=== PATIENT | female | born 1930 | race Caucasian/White ===

== ENCOUNTER → 2018-03-16 | Outpatient (CLI) | payer MEDICARE, OTHER | END | disposition home or self-care (01) | LOC: RAD 13:43 | DX: J20.9 Acute bronchitis, unspecified (principal) | CPT/HCPCS: 71046 ==

== ENCOUNTER 2018-03-19 11:04 | Inpatient (IN) | payer MEDICARE, OTHER ==
[2018-03-19 13:13] LABS: ADD UMIC YES; UR ASCORBIC ACID NEGATIVE (NEGATIVE); UR BACTERIA FEW /HPF (NONE SEEN); UR BILIRUBIN (Dip) NEGATIVE (NEGATIVE); UR BLOOD (Dip) 1+ mg/dL (NEGATIVE); UR CLARITY CLEAR (CLEAR); UR COLOR YELLOW (YELLOW); UR GLUCOSE (Dip) NEGATIVE (NEGATIVE); UR KETONES (Dip) NEGATIVE (NEGATIVE); UR LEUKOCYTE ESTERASE (Dip) 1+ Leu/ul (NEGATIVE); UR NITRITE (Dip) NEGATIVE (NEGATIVE); UR RBC 1 /HPF (0-5); UR SQUAMOUS EPITHELIAL CELL FEW /HPF (FEW); UR TOTAL PROTEIN (Dip) 2+ mg/dl (NEGATIVE); UR UROBILINOGEN (Dip) NEGATIVE (NEGATIVE); UR WBC 3 /HPF (0-5)
[2018-03-19 13:21] LABS: ADD MAN DIFF? NO
[2018-03-19 13:26] LABS: BASOPHILS % 0.1 % (0.0-2.0); HEMATOCRIT 45.4 % (37.0-47.0); HEMOGLOBIN 14.9 g/dl (12.0-16.0); LYMPHOCYTES # 1.6 10^3/ul (0.8-2.9); LYMPHOCYTES % 11.7 % (15.0-51.0); MEAN CORPUSCULAR HEMOGLOBIN 27.9 pg (29.0-33.0); MEAN CORPUSCULAR HGB CONC 32.8 g/dl (32.0-37.0); MEAN PLATELET VOLUME 11.2 fl (7.4-10.4); MONOCYTE # 0.5 10^3/ul (0.3-0.9); NEUTROPHIL # 11.2 10^3/ul (1.6-7.5); NEUTROPHILS % 83.8 % (39.0-77.0); PLATELET COUNT 326 10^3/UL (140-415); RED BLOOD COUNT 5.34 10^6/ul (4.20-5.40); RED CELL DISTRIBUTION WIDTH 13.2 % (11.5-14.5)
[2018-03-19 13:26] LABS: WHITE BLOOD COUNT 13.4 10^3/ul (4.8-10.8)
[2018-03-19] MEDS: CEFTRIAXONE 1 GM/50 ML (PMX) 50 ML IVPB (14:13)
[2018-03-19] MEDS: SOD CHLORIDE 0.9% 1,000 ML IV (14:14)
[2018-03-19 14:15] LABS: ALANINE AMINOTRANSFERASE 29 IU/L (13-69); ALBUMIN 3.9 g/dl (3.3-4.9); ALKALINE PHOSPHATASE 69 IU/L (42-121); ANION GAP 14 (8-16); ASPARTATE AMINO TRANSFERASE 27 IU/L (15-46); BILIRUBIN,INDIRECT 0.5 mg/dl (0-1.1); BILIRUBIN,TOTAL 0.5 mg/dl (0.2-1.3); BLOOD UREA NITROGEN 28 mg/dl (7-20); CALCIUM 9.7 mg/dl (8.4-10.2); CARBON DIOXIDE 31 mmol/L (21-31); CHLORIDE 102 mmol/L (97-110); GLUCOSE 145 mg/dl (70-220); POTASSIUM 4.1 mmol/L (3.5-5.1); SODIUM 143 mmol/L (135-144); TOTAL PROTEIN 7.8 g/dl (6.1-8.1)
[2018-03-19 14:23] LABS: B-TYPE NATRIURETIC PEPTIDE 12200 PG/ML (0-450)
[2018-03-19] MEDS: AZITHROMYCIN 500MG/NS (PMX) 250 ML IV (14:47)
[2018-03-19] MEDS ORDERED: SOD CHLORIDE 0.9% 1,000 ML IV (14:49)
[2018-03-19] MEDS ORDERED: ONDANSETRON 4 MG INJ IV (15:00)
[2018-03-19] MEDS ORDERED: ACETAMINOPHEN 325 MG TAB PO (15:00)
[2018-03-19] MEDS ORDERED: ACETAMINOPHEN 650 MG SUPP PR (16:30)
[2018-03-19] MEDS ORDERED: hydrALAzine 20 MG INJ IV (16:30)
[2018-03-19] MEDS ORDERED: morphine 2 MG INJ IV (16:30)
[2018-03-19] MEDS ORDERED: NACL 0.9% 3 ML SYG IV (16:30)
[2018-03-19] MEDS ORDERED: HYDROCODONE/APAP (5/325) TAB PO ×2 (16:30)
[2018-03-19] MEDS ORDERED: BISACODYL 10 MG SUPP PR (16:30)
[2018-03-19] MEDS ORDERED: ALBUTEROL HFA 8 GM INHALER INH (17:00)
[2018-03-19] MEDS: FUROSEMIDE 40 MG INJ IV (17:57)
[2018-03-19 19:57] LABS: LACTIC ACID 2.6 mmol/L (0.5-2.0)
[2018-03-19] MEDS: ONDANSETRON 4 MG INJ IV (20:25)
[2018-03-19] MEDS: SOD CHLORIDE 0.9% 250 ML IV (20:27)
[2018-03-19] MEDS: CALCIUM CARBONATE 1.25 GM TAB PO (21:00)
[2018-03-19] MEDS: GUAIFENESIN LA 600 MG TABSR PO (21:00)
[2018-03-19] MEDS: ROPINIROLE 0.25 MG TAB PO (21:00)
[2018-03-19] MEDS: ATORVASTATIN 40 MG TAB PO (21:00)
[2018-03-20 01:30] LABS: LACTIC ACID 1.9 mmol/L (0.5-2.0)
[2018-03-20] MEDS: ONDANSETRON INJ 8 MG in DEXTROSE 5% 50 ML IV (01:38)
[2018-03-20 01:42] LABS: TROPONIN-I 0.055 ng/ml (0.00-0.12)
[2018-03-20] MEDS: OSELTAMIVIR 75 MG CAP PO ×3 (02:26→20:29)
[2018-03-20] MEDS: PANTOPRAZOLE 40 MG INJ IV (06:09)
[2018-03-20 06:12] LABS: ADD MAN DIFF? NO
[2018-03-20 06:13] LABS: BASOPHILS % 0.1 % (0.0-2.0); HEMATOCRIT 42.8 % (37.0-47.0); HEMOGLOBIN 14.4 g/dl (12.0-16.0); LYMPHOCYTES # 1.6 10^3/ul (0.8-2.9); LYMPHOCYTES % 13.4 % (15.0-51.0); MEAN CORPUSCULAR HEMOGLOBIN 28.4 pg (29.0-33.0); MEAN CORPUSCULAR HGB CONC 33.6 g/dl (32.0-37.0); MEAN CORPUSCULAR VOLUME 84.4 fl (82.0-101.0); MEAN PLATELET VOLUME 10.8 fl (7.4-10.4); MONOCYTE # 1.3 10^3/ul (0.3-0.9); MONOCYTES % 10.7 % (0.0-11.0); NEUTROPHILS % 75.5 % (39.0-77.0); PLATELET COUNT 335 10^3/UL (140-415); RED BLOOD COUNT 5.07 10^6/ul (4.20-5.40); RED CELL DISTRIBUTION WIDTH 13.1 % (11.5-14.5)
[2018-03-20 06:13] LABS: WHITE BLOOD COUNT 11.9 10^3/ul (4.8-10.8)
[2018-03-20 06:32] LABS: HEMOGLOBIN A1C 5.9 % (0-5.9)
[2018-03-20 06:51] LABS: ALANINE AMINOTRANSFERASE 30 IU/L (13-69); ALBUMIN/GLOBULIN RATIO 1.11; ALKALINE PHOSPHATASE 65 IU/L (42-121); ANION GAP 12 (8-16); ASPARTATE AMINO TRANSFERASE 25 IU/L (15-46); BILIRUBIN,INDIRECT 0.7 mg/dl (0-1.1); BILIRUBIN,TOTAL 0.7 mg/dl (0.2-1.3); BLOOD UREA NITROGEN 27 mg/dl (7-20); CALCIUM 9.5 mg/dl (8.4-10.2); CARBON DIOXIDE 39 mmol/L (21-31); CHLORIDE 95 mmol/L (97-110); CHOLESTEROL 220 mg/dl (100-200); CREATININE 0.85 mg/dl (0.44-1.00); GLUCOSE 161 mg/dl (70-220); HDL CHOLESTEROL 72 mg/dl (33-92); LDL CHOLESTEROL,CALCULATED 124 mg/dl; MAGNESIUM 1.7 mg/dl (1.7-2.5); POTASSIUM 3.9 mmol/L (3.5-5.1); SODIUM 142 mmol/L (135-144); TOTAL PROTEIN 7.6 g/dl (6.1-8.1); TRIGLYCERIDES 119 mg/dl (0-149)
[2018-03-20 06:56] LABS: FREE THYROXINE INDEX (Calc) 3.16 ug/ml (0.65-3.89); T3 UPTAKE 36.3 % (23.5-40.5); T4 (THYROXINE) 8.7 ug/dl (5.5-11.0)
[2018-03-20 06:58] LABS: LACTIC ACID 1.4 mmol/L (0.5-2.0)
[2018-03-20] MEDS: DONEPEZIL 10 MG TAB PO (08:45)
[2018-03-20] MEDS: FUROSEMIDE 40 MG INJ IV (08:45)
[2018-03-20] MEDS: NIFEdipine (XL) 60 MG TAB PO (08:46)
[2018-03-20] MEDS ORDERED: AZITHROMYCIN 500MG/NS (PMX) 250 ML IVPB (09:00)
[2018-03-20] MEDS: ASPIRIN 81 MG TAB PO (11:33)
[2018-03-20] MEDS: GUAIFENESIN LA 600 MG TABSR PO ×2 (11:33→20:28)
[2018-03-20] MEDS: VALSARTAN 160 MG TAB PO (11:34)
[2018-03-20] MEDS: HYDROCHLOROTHIAZIDE 25 MG TAB PO (11:34)
[2018-03-20 12:08] LABS: LACTIC ACID 2.4 mmol/L (0.5-2.0)
[2018-03-20] MEDS: SOLIFENACIN 5 MG TAB PO (13:47)
[2018-03-20] MEDS: LEVOTHYROXINE 75 MCG TAB PO (13:47)
[2018-03-20] MEDS: CALCIUM CARBONATE 1.25 GM TAB PO ×2 (13:47→20:29)
[2018-03-20] MEDS: LACTATED RINGER'S 1,000 ML IV (13:48)
[2018-03-20] MEDS: CEFTRIAXONE 2 GM/50 ML (PMX) 50 ML IVPB (13:48)
[2018-03-20 19:52] LABS: LACTIC ACID 2.6 mmol/L (0.5-2.0)
[2018-03-20] MEDS: SOD CHLORIDE 0.9% 500 ML IV (20:25)
[2018-03-20] MEDS: ATORVASTATIN 40 MG TAB PO (20:28)
[2018-03-20] MEDS: ROPINIROLE 0.25 MG TAB PO (20:28)
[2018-03-21 00:26] LABS: LACTIC ACID 1.4 mmol/L (0.5-2.0)
[2018-03-21] MEDS: LACTATED RINGER'S 1,000 ML IV ×3 (02:50→21:28)
[2018-03-21 05:39] LABS: ADD MAN DIFF? NO
[2018-03-21 05:43] LABS: BASOPHILS % 0.1 % (0.0-2.0); EOSINOPHILS # 0.1 10^3/ul (0.0-0.5); EOSINOPHILS % 0.9 % (0.0-7.0); HEMATOCRIT 36.8 % (37.0-47.0); HEMOGLOBIN 12.2 g/dl (12.0-16.0); LYMPHOCYTES # 2.9 10^3/ul (0.8-2.9); LYMPHOCYTES % 28.6 % (15.0-51.0); MEAN CORPUSCULAR HGB CONC 33.2 g/dl (32.0-37.0); MEAN CORPUSCULAR VOLUME 84.4 fl (82.0-101.0); MEAN PLATELET VOLUME 10.8 fl (7.4-10.4); MONOCYTES % 9.9 % (0.0-11.0); NEUTROPHILS % 59.9 % (39.0-77.0); PLATELET COUNT 294 10^3/UL (140-415); RED BLOOD COUNT 4.36 10^6/ul (4.20-5.40); RED CELL DISTRIBUTION WIDTH 13.2 % (11.5-14.5)
[2018-03-21 05:43] LABS: WHITE BLOOD COUNT 10.1 10^3/ul (4.8-10.8)
[2018-03-21 06:01] LABS: ANION GAP 14 (8-16); BLOOD UREA NITROGEN 45 mg/dl (7-20); CALCIUM 8.1 mg/dl (8.4-10.2); CARBON DIOXIDE 34 mmol/L (21-31); CHLORIDE 92 mmol/L (97-110); CREATININE 1.45 mg/dl (0.44-1.00); GLUCOSE 106 mg/dl (70-220); POTASSIUM 3.1 mmol/L (3.5-5.1); SODIUM 137 mmol/L (135-144)
[2018-03-21] MEDS: PANTOPRAZOLE 40 MG INJ IV (06:38)
[2018-03-21] MEDS: LEVOTHYROXINE 75 MCG TAB PO (06:39)
[2018-03-21] MEDS: VALSARTAN 160 MG TAB PO (09:00)
[2018-03-21] MEDS: NIFEdipine (XL) 60 MG TAB PO (09:00)
[2018-03-21] MEDS: SOLIFENACIN 5 MG TAB PO (09:33)
[2018-03-21] MEDS: OSELTAMIVIR 75 MG CAP PO ×2 (09:34→21:27)
[2018-03-21] MEDS: CALCIUM CARBONATE 1.25 GM TAB PO ×2 (09:34→21:28)
[2018-03-21] MEDS: DONEPEZIL 10 MG TAB PO (09:34)
[2018-03-21] MEDS: ASPIRIN 81 MG TAB PO (09:34)
[2018-03-21] MEDS: GUAIFENESIN LA 600 MG TABSR PO ×2 (09:34→21:28)
[2018-03-21] MEDS: FUROSEMIDE 40 MG INJ IV (09:42)
[2018-03-21] MEDS: CEFTRIAXONE 2 GM/50 ML (PMX) 50 ML IVPB (14:00)
[2018-03-21] MEDS: POTASSIUM CHLORIDE (SR) 20 MEQ TAB PO (16:08)
[2018-03-21] MEDS: ATORVASTATIN 40 MG TAB PO (21:27)
[2018-03-21] MEDS: ROPINIROLE 0.25 MG TAB PO (21:28)
[2018-03-21 23:17] LABS: CREATININE,URINE RANDOM 42.69 mg/dl (20-320)
[2018-03-21 23:17] LABS: SODIUM,URINE RANDOM 60 mmol/L (30-90)
[2018-03-22] MEDS: DOCUSATE SODIUM 100 MG CAP PO (03:17)
[2018-03-22 06:14] LABS: ADD MAN DIFF? NO
[2018-03-22 06:23] LABS: BASOPHILS % 0.2 % (0.0-2.0); EOSINOPHILS # 0.2 10^3/ul (0.0-0.5); EOSINOPHILS % 1.7 % (0.0-7.0); HEMATOCRIT 38.2 % (37.0-47.0); HEMOGLOBIN 12.7 g/dl (12.0-16.0); LYMPHOCYTES # 2.5 10^3/ul (0.8-2.9); LYMPHOCYTES % 23.5 % (15.0-51.0); MEAN CORPUSCULAR HGB CONC 33.2 g/dl (32.0-37.0); MEAN CORPUSCULAR VOLUME 84.3 fl (82.0-101.0); MEAN PLATELET VOLUME 10.8 fl (7.4-10.4); MONOCYTE # 1.2 10^3/ul (0.3-0.9); MONOCYTES % 10.8 % (0.0-11.0); NEUTROPHIL # 6.7 10^3/ul (1.6-7.5); NEUTROPHILS % 62.9 % (39.0-77.0); PLATELET COUNT 289 10^3/UL (140-415); RED BLOOD COUNT 4.53 10^6/ul (4.20-5.40); RED CELL DISTRIBUTION WIDTH 13.4 % (11.5-14.5)
[2018-03-22 06:23] LABS: WHITE BLOOD COUNT 10.7 10^3/ul (4.8-10.8)
[2018-03-22] MEDS: PANTOPRAZOLE 40 MG INJ IV (06:35)
[2018-03-22] MEDS: LEVOTHYROXINE 75 MCG TAB PO (06:35)
[2018-03-22 06:47] LABS: ANION GAP 13 (8-16); BLOOD UREA NITROGEN 42 mg/dl (7-20); CALCIUM 8.8 mg/dl (8.4-10.2); CARBON DIOXIDE 32 mmol/L (21-31); CHLORIDE 96 mmol/L (97-110); GLUCOSE 104 mg/dl (70-220); POTASSIUM 3.8 mmol/L (3.5-5.1); SODIUM 137 mmol/L (135-144)
[2018-03-22] MEDS: SOLIFENACIN 5 MG TAB PO (09:59)
[2018-03-22] MEDS: ASPIRIN 81 MG TAB PO (10:00)
[2018-03-22] MEDS: NIFEdipine (XL) 60 MG TAB PO (10:00)
[2018-03-22] MEDS: GUAIFENESIN LA 600 MG TABSR PO ×2 (10:00→20:45)
[2018-03-22] MEDS ORDERED: LACTULOSE 30ML CUP PO (10:00)
[2018-03-22] MEDS ORDERED: PROMETHAZINE/CODEINE 5ML CUP PO (10:00)
[2018-03-22] MEDS: OSELTAMIVIR 75 MG CAP PO (10:00)
[2018-03-22] MEDS: DONEPEZIL 10 MG TAB PO (10:00)
[2018-03-22] MEDS: CALCIUM CARBONATE 1.25 GM TAB PO ×2 (10:01→20:45)
[2018-03-22] MEDS: LACTULOSE 30ML CUP PO (10:02)
[2018-03-22] MEDS: PROMETHAZINE/CODEINE 5ML CUP PO (10:06)
[2018-03-22] MEDS: MAGNESIUM HYDROXIDE 30ML CUP PO ×2 (12:16→17:45)
[2018-03-22] MEDS: CEFTRIAXONE 2 GM/50 ML (PMX) 50 ML IVPB (14:23)
[2018-03-22] MEDS: CLOTRIMAZOLE 1% 30 GM CR TOP ×2 (17:44→20:48)
[2018-03-22] MEDS: OSELTAMIVIR 30 MG CAP PO (20:45)
[2018-03-22] MEDS: ROPINIROLE 0.25 MG TAB PO (20:45)
[2018-03-22] MEDS: ATORVASTATIN 40 MG TAB PO (20:45)
[2018-03-23] MEDS: PANTOPRAZOLE 40 MG INJ IV (05:47)
[2018-03-23 06:19] LABS: ADD MAN DIFF? NO
[2018-03-23 06:32] LABS: WHITE BLOOD COUNT 10.7 10^3/ul (4.8-10.8)
[2018-03-23 06:32] LABS: BASOPHILS % 0.3 % (0.0-2.0); EOSINOPHILS # 0.3 10^3/ul (0.0-0.5); EOSINOPHILS % 3.2 % (0.0-7.0); HEMATOCRIT 37.3 % (37.0-47.0); HEMOGLOBIN 12.4 g/dl (12.0-16.0); LYMPHOCYTES # 2.6 10^3/ul (0.8-2.9); LYMPHOCYTES % 24.3 % (15.0-51.0); MEAN CORPUSCULAR HEMOGLOBIN 28.7 pg (29.0-33.0); MEAN CORPUSCULAR HGB CONC 33.2 g/dl (32.0-37.0); MEAN CORPUSCULAR VOLUME 86.3 fl (82.0-101.0); MEAN PLATELET VOLUME 10.5 fl (7.4-10.4); MONOCYTE # 1.1 10^3/ul (0.3-0.9); MONOCYTES % 10.3 % (0.0-11.0); NEUTROPHIL # 6.5 10^3/ul (1.6-7.5); NEUTROPHILS % 61.1 % (39.0-77.0); PLATELET COUNT 280 10^3/UL (140-415); RED BLOOD COUNT 4.32 10^6/ul (4.20-5.40); RED CELL DISTRIBUTION WIDTH 13.3 % (11.5-14.5)
[2018-03-23] MEDS: LEVOTHYROXINE 75 MCG TAB PO (06:33)
[2018-03-23] MEDS: ACETAMINOPHEN 325 MG TAB PO (06:33)
[2018-03-23 07:25] LABS: ANION GAP 11 (8-16); BLOOD UREA NITROGEN 40 mg/dl (7-20); CALCIUM 8.7 mg/dl (8.4-10.2); CARBON DIOXIDE 34 mmol/L (21-31); CHLORIDE 96 mmol/L (97-110); CREATININE 1.02 mg/dl (0.44-1.00); GLUCOSE 107 mg/dl (70-220); POTASSIUM 4.2 mmol/L (3.5-5.1); SODIUM 137 mmol/L (135-144)
[2018-03-23] MEDS: ASPIRIN 81 MG TAB PO (08:59)
[2018-03-23] MEDS: DONEPEZIL 10 MG TAB PO (08:59)
[2018-03-23] MEDS: CALCIUM CARBONATE 1.25 GM TAB PO ×2 (09:00→21:32)
[2018-03-23] MEDS: GUAIFENESIN LA 600 MG TABSR PO ×2 (09:00→21:32)
[2018-03-23] MEDS: SOLIFENACIN 5 MG TAB PO (09:00)
[2018-03-23] MEDS: OSELTAMIVIR 30 MG CAP PO ×2 (09:00→21:32)
[2018-03-23] MEDS: NIFEdipine (XL) 60 MG TAB PO (09:00)
[2018-03-23] MEDS: CLOTRIMAZOLE 1% 30 GM CR TOP ×3 (09:01→21:32)
[2018-03-23] MEDS: CEFTRIAXONE 2 GM/50 ML (PMX) 50 ML IVPB (13:40)
[2018-03-23] MEDS: ATORVASTATIN 40 MG TAB PO (21:32)
[2018-03-23] MEDS: ROPINIROLE 0.25 MG TAB PO (21:32)
[2018-03-24] MEDS: PANTOPRAZOLE 40 MG INJ IV (06:11)
[2018-03-24] MEDS: LEVOTHYROXINE 75 MCG TAB PO (06:11)
[2018-03-24 06:25] LABS: ADD MAN DIFF? NO
[2018-03-24 06:32] LABS: BASOPHILS % 0.3 % (0.0-2.0); EOSINOPHILS # 0.4 10^3/ul (0.0-0.5); EOSINOPHILS % 4.3 % (0.0-7.0); HEMATOCRIT 35.7 % (37.0-47.0); HEMOGLOBIN 11.6 g/dl (12.0-16.0); LYMPHOCYTES % 21.3 % (15.0-51.0); MEAN CORPUSCULAR HEMOGLOBIN 28.1 pg (29.0-33.0); MEAN CORPUSCULAR HGB CONC 32.5 g/dl (32.0-37.0); MEAN CORPUSCULAR VOLUME 86.4 fl (82.0-101.0); MONOCYTE # 0.9 10^3/ul (0.3-0.9); MONOCYTES % 9.2 % (0.0-11.0); NEUTROPHILS % 64.1 % (39.0-77.0); PLATELET COUNT 268 10^3/UL (140-415); RED BLOOD COUNT 4.13 10^6/ul (4.20-5.40); RED CELL DISTRIBUTION WIDTH 13.6 % (11.5-14.5)
[2018-03-24 06:32] LABS: WHITE BLOOD COUNT 9.3 10^3/ul (4.8-10.8)
[2018-03-24 07:05] LABS: ANION GAP 8 (8-16); BLOOD UREA NITROGEN 36 mg/dl (7-20); CARBON DIOXIDE 36 mmol/L (21-31); CHLORIDE 100 mmol/L (97-110); CREATININE 0.99 mg/dl (0.44-1.00); GLUCOSE 109 mg/dl (70-220); POTASSIUM 4.6 mmol/L (3.5-5.1); SODIUM 139 mmol/L (135-144)
[2018-03-24] MEDS: DONEPEZIL 10 MG TAB PO (09:12)
[2018-03-24] MEDS: ASPIRIN 81 MG TAB PO (09:12)
[2018-03-24] MEDS: OSELTAMIVIR 30 MG CAP PO ×2 (09:12→20:09)
[2018-03-24] MEDS: CALCIUM CARBONATE 1.25 GM TAB PO ×2 (09:12→20:09)
[2018-03-24] MEDS: GUAIFENESIN LA 600 MG TABSR PO ×2 (09:12→20:09)
[2018-03-24] MEDS: NIFEdipine (XL) 60 MG TAB PO (09:13)
[2018-03-24] MEDS: CLOTRIMAZOLE 1% 30 GM CR TOP ×3 (09:14→20:10)
[2018-03-24] MEDS: SOLIFENACIN 5 MG TAB PO (09:16)
[2018-03-24] MEDS: CEFTRIAXONE 2 GM/50 ML (PMX) 50 ML IVPB (13:03)
[2018-03-24] MEDS: ROPINIROLE 0.25 MG TAB PO (20:06)
[2018-03-24] MEDS: BENZONATATE 100 MG CAP PO (20:08)
[2018-03-24] MEDS: ATORVASTATIN 40 MG TAB PO (20:09)
[2018-03-25 06:10] LABS: ADD MAN DIFF? NO
[2018-03-25] MEDS: PANTOPRAZOLE 40 MG INJ IV (06:10)
[2018-03-25 06:13] LABS: WHITE BLOOD COUNT 8.3 10^3/ul (4.8-10.8)
[2018-03-25 06:13] LABS: BASOPHILS % 0.4 % (0.0-2.0); EOSINOPHILS # 0.4 10^3/ul (0.0-0.5); EOSINOPHILS % 4.3 % (0.0-7.0); HEMATOCRIT 36.1 % (37.0-47.0); HEMOGLOBIN 11.8 g/dl (12.0-16.0); LYMPHOCYTES # 1.5 10^3/ul (0.8-2.9); LYMPHOCYTES % 18.5 % (15.0-51.0); MEAN CORPUSCULAR HEMOGLOBIN 28.3 pg (29.0-33.0); MEAN CORPUSCULAR HGB CONC 32.7 g/dl (32.0-37.0); MEAN CORPUSCULAR VOLUME 86.6 fl (82.0-101.0); MEAN PLATELET VOLUME 10.4 fl (7.4-10.4); MONOCYTES % 12.5 % (0.0-11.0); NEUTROPHIL # 5.3 10^3/ul (1.6-7.5); NEUTROPHILS % 63.6 % (39.0-77.0); PLATELET COUNT 266 10^3/UL (140-415); RED BLOOD COUNT 4.17 10^6/ul (4.20-5.40); RED CELL DISTRIBUTION WIDTH 13.4 % (11.5-14.5)
[2018-03-25] MEDS: LEVOTHYROXINE 75 MCG TAB PO (06:30)
[2018-03-25] MEDS: DOCUSATE SODIUM 100 MG CAP PO ×2 (06:30→21:59)
[2018-03-25 06:41] LABS: ANION GAP 9 (8-16); BLOOD UREA NITROGEN 31 mg/dl (7-20); CALCIUM 8.8 mg/dl (8.4-10.2); CARBON DIOXIDE 31 mmol/L (21-31); CHLORIDE 104 mmol/L (97-110); CREATININE 0.87 mg/dl (0.44-1.00); GLUCOSE 109 mg/dl (70-220); POTASSIUM 4.3 mmol/L (3.5-5.1); SODIUM 140 mmol/L (135-144)
[2018-03-25] MEDS: CALCIUM CARBONATE 1.25 GM TAB PO ×2 (09:14→21:50)
[2018-03-25] MEDS: ASPIRIN 81 MG TAB PO (09:15)
[2018-03-25] MEDS: DONEPEZIL 10 MG TAB PO (09:15)
[2018-03-25] MEDS: NIFEdipine (XL) 60 MG TAB PO (09:15)
[2018-03-25] MEDS: OSELTAMIVIR 30 MG CAP PO ×2 (09:15→21:51)
[2018-03-25] MEDS: SOLIFENACIN 5 MG TAB PO (09:15)
[2018-03-25] MEDS: GUAIFENESIN LA 600 MG TABSR PO ×2 (09:16→21:52)
[2018-03-25] MEDS: CLOTRIMAZOLE 1% 30 GM CR TOP ×3 (09:17→21:53)
[2018-03-25] MEDS: BENZONATATE 100 MG CAP PO ×2 (13:10→21:49)
[2018-03-25] MEDS: CEFTRIAXONE 2 GM/50 ML (PMX) 50 ML IVPB (13:10)
[2018-03-25] MEDS: ROPINIROLE 0.25 MG TAB PO (21:49)
[2018-03-25] MEDS: ATORVASTATIN 40 MG TAB PO (21:51)
[2018-03-25] MEDS: MAGNESIUM HYDROXIDE 30ML CUP PO (21:59)
[2018-03-26] MEDS: BENZONATATE 100 MG CAP PO (06:09)
[2018-03-26] MEDS: PANTOPRAZOLE 40 MG INJ IV (06:09)
[2018-03-26] MEDS: LEVOTHYROXINE 75 MCG TAB PO (06:09)
[2018-03-26 06:44] LABS: ADD MAN DIFF? NO
[2018-03-26 06:55] LABS: WHITE BLOOD COUNT 8.2 10^3/ul (4.8-10.8)
[2018-03-26 06:55] LABS: BASOPHILS % 0.2 % (0.0-2.0); EOSINOPHILS # 0.3 10^3/ul (0.0-0.5); EOSINOPHILS % 4.2 % (0.0-7.0); HEMOGLOBIN 11.7 g/dl (12.0-16.0); LYMPHOCYTES # 1.4 10^3/ul (0.8-2.9); LYMPHOCYTES % 16.5 % (15.0-51.0); MEAN CORPUSCULAR HEMOGLOBIN 28.7 pg (29.0-33.0); MEAN CORPUSCULAR HGB CONC 33.4 g/dl (32.0-37.0); MONOCYTE # 0.9 10^3/ul (0.3-0.9); MONOCYTES % 10.6 % (0.0-11.0); NEUTROPHIL # 5.5 10^3/ul (1.6-7.5); NEUTROPHILS % 67.6 % (39.0-77.0); PLATELET COUNT 251 10^3/UL (140-415); RED BLOOD COUNT 4.07 10^6/ul (4.20-5.40); RED CELL DISTRIBUTION WIDTH 13.5 % (11.5-14.5)
[2018-03-26 07:06] LABS: POSITIVE DIFF @See below
[2018-03-26 07:13] LABS: ANION GAP 11 (8-16); BLOOD UREA NITROGEN 30 mg/dl (7-20); CALCIUM 8.4 mg/dl (8.4-10.2); CARBON DIOXIDE 32 mmol/L (21-31); CHLORIDE 102 mmol/L (97-110); CREATININE 0.92 mg/dl (0.44-1.00); GLUCOSE 110 mg/dl (70-220); MAGNESIUM 2.1 mg/dl (1.7-2.5); PHOSPHORUS 2.8 mg/dl (2.5-4.9); POTASSIUM 4.2 mmol/L (3.5-5.1); SODIUM 141 mmol/L (135-144)
[2018-03-26] MEDS: ASPIRIN 81 MG TAB PO (08:09)
[2018-03-26] MEDS: DONEPEZIL 10 MG TAB PO (08:09)
[2018-03-26] MEDS: CALCIUM CARBONATE 1.25 GM TAB PO (08:10)
[2018-03-26] MEDS: GUAIFENESIN LA 600 MG TABSR PO (08:10)
[2018-03-26] MEDS: OSELTAMIVIR 30 MG CAP PO (08:11)
[2018-03-26] MEDS: NIFEdipine (XL) 60 MG TAB PO (08:12)
[2018-03-26] MEDS: SOLIFENACIN 5 MG TAB PO (08:13)
[2018-03-26] MEDS: CLOTRIMAZOLE 1% 30 GM CR TOP ×2 (08:20→12:00)
[2018-03-26] MEDS: BISACODYL 10 MG SUPP PR (12:00)
[2018-03-26] MEDS: DOCUSATE SODIUM 100 MG CAP PO (12:00)
[2018-03-26] MEDS: CEFTRIAXONE 2 GM/50 ML (PMX) 50 ML IVPB (13:55)
== END 2018-03-26 19:30 | DRG 871 ==
LOC: E/R 11:04 → MS2 14:50
PROVIDERS: Hospitalist
DX: A41.89 Other specified sepsis (principal); I50.43 Acute on chronic combined systolic (congestive) and diastolic (congestive) heart failure; G93.41 Metabolic encephalopathy; N39.0 Urinary tract infection, site not specified; I13.0 Hypertensive heart and chronic kidney disease with heart failure and stage 1 through stage 4 chronic kidney disease, or unspecified chronic kidney disease; N17.9 Acute kidney failure, unspecified; J10.89 Influenza due to other identified influenza virus with other manifestations; E11.9 Type 2 diabetes mellitus without complications; F03.90 Unspecified dementia, unspecified severity, without behavioral disturbance, psychotic disturbance, mood disturbance, and anxiety; I25.10 Atherosclerotic heart disease of native coronary artery without angina pectoris; Z95.1 Presence of aortocoronary bypass graft; Z90.710 Acquired absence of both cervix and uterus; E03.9 Hypothyroidism, unspecified; E78.00 Pure hypercholesterolemia, unspecified; N18.9 Chronic kidney disease, unspecified
CPT/HCPCS: 36415; 70450; 70551; 71045; 74176; 80048; 80053; 80061; 81001; 81003; 83036; 83605; 83735; 83880; 84100; 84155; 84300; 84436; 84443; 84479; 84484; 85025; 87040; 87070; 87086; 87400; 89190; 93306; 96374; 96375; 97110; 97116; 97162; 97530; 99285-25

== ENCOUNTER 2019-05-23 05:29 | Inpatient (IN) | payer MEDICARE, OTHER ==
[2019-05-23] MEDS: FENTAnyl 50 MCG/ML VIAL IV (06:18)
[2019-05-23] MEDS ORDERED: ACETAMINOPHEN 325 MG TAB PO ×2 (06:30)
[2019-05-23] MEDS ORDERED: DOCUSATE SODIUM 100 MG CAP PO (06:30)
[2019-05-23] MEDS ORDERED: ONDANSETRON 4 MG INJ IV ×2 (06:30)
[2019-05-23] MEDS ORDERED: BISACODYL (EC) 5 MG TAB PO (06:30)
[2019-05-23] MEDS ORDERED: NACL 0.9% 3 ML SYG IV (06:30)
[2019-05-23 06:47] LABS: ADD MAN DIFF? NO
[2019-05-23 06:53] LABS: BASOPHILS % 0.4 % (0.0-2.0); EOSINOPHILS # 0.3 10^3/ul (0.0-0.5); HEMATOCRIT 33.4 % (37.0-47.0); HEMOGLOBIN 10.8 g/dl (12.0-16.0); LYMPHOCYTES # 2.3 10^3/ul (0.8-2.9); LYMPHOCYTES % 32.9 % (15.0-51.0); MEAN CORPUSCULAR HEMOGLOBIN 28.7 pg (29.0-33.0); MEAN CORPUSCULAR HGB CONC 32.3 g/dl (32.0-37.0); MEAN CORPUSCULAR VOLUME 88.8 fl (82.0-101.0); MEAN PLATELET VOLUME 11.5 fl (7.4-10.4); MONOCYTE # 0.7 10^3/ul (0.3-0.9); MONOCYTES % 9.9 % (0.0-11.0); NEUTROPHIL # 3.7 10^3/ul (1.6-7.5); NEUTROPHILS % 52.4 % (39.0-77.0); PLATELET COUNT 215 10^3/UL (140-415); RED BLOOD COUNT 3.76 10^6/ul (4.20-5.40); RED CELL DISTRIBUTION WIDTH 12.6 % (11.5-14.5)
[2019-05-23 06:53] LABS: WHITE BLOOD COUNT 7.1 10^3/ul (4.8-10.8)
[2019-05-23] MEDS ORDERED: ALBUTEROL 18 GM INHALER INH (07:00)
[2019-05-23] MEDS: SOD CHLORIDE 0.9% 1,000 ML IV (07:10)
[2019-05-23 07:13] LABS: INR 1.04; PROTIME 13.7 Sec (11.9-14.9); PT RATIO 1.1
[2019-05-23 07:16] LABS: ANION GAP 12 (5-13); BLOOD UREA NITROGEN 50 mg/dl (7-20); CALCIUM 9.4 mg/dl (8.4-10.2); CARBON DIOXIDE 20 mmol/L (21-31); CHLORIDE 109 mmol/L (97-110); CREATININE 1.31 mg/dl (0.44-1.00); GLUCOSE 110 mg/dl (70-220); SODIUM 141 mmol/L (135-144)
[2019-05-23 07:18] LABS: POTASSIUM 5.5 mmol/L (3.5-5.1)
[2019-05-23] MEDS: HYDROCODONE/APAP (5/325) TAB PO (07:21)
[2019-05-23] MEDS: morphine 2 MG INJ IV (07:21)
[2019-05-23 07:26] LABS: TROPONIN-I < 0.012 ng/ml (0.000-0.120)
[2019-05-23] MEDS: LEVOTHYROXINE 75 MCG TAB PO (08:25)
[2019-05-23 08:54] LABS: THYROID STIMULATING HORMONE 0.821 MIU/L (0.465-4.680)
[2019-05-23] MEDS: PANTOPRAZOLE (EC) 40 MG TAB PO (09:00)
[2019-05-23] MEDS: NIFEdipine (XL) 60 MG TAB PO (09:00)
[2019-05-23] MEDS: HYDROmorphONE 1 MG/ML SYG IV ×2 (11:01→18:16)
[2019-05-23 11:25] LABS: CREATINE KINASE 54 IU/L (23-200)
[2019-05-23 11:35] LABS: CK INDEX 1.7; CK-MB 0.91 ng/ml (0.0-2.4)
[2019-05-23 11:39] LABS: ANION GAP 8 (5-13); BLOOD UREA NITROGEN 46 mg/dl (7-20); CALCIUM 8.9 mg/dl (8.4-10.2); CARBON DIOXIDE 22 mmol/L (21-31); CHLORIDE 109 mmol/L (97-110); CREATININE 1.13 mg/dl (0.44-1.00); GLUCOSE 125 mg/dl (70-220); POTASSIUM 5.9 mmol/L (3.5-5.1); SODIUM 139 mmol/L (135-144)
[2019-05-23 11:42] LABS: TROPONIN-I < 0.012 ng/ml (0.000-0.120)
[2019-05-23] MEDS: DONEPEZIL 10 MG TAB PO (12:03)
[2019-05-23] MEDS: ASPIRIN 81 MG TAB PO (12:03)
[2019-05-23 18:43] LABS: CREATINE KINASE 53 IU/L (23-200)
[2019-05-23 18:53] LABS: CK INDEX 1.7; CK-MB 0.91 ng/ml (0.0-2.4); TROPONIN-I < 0.012 ng/ml (0.000-0.120)
[2019-05-23] MEDS: ATORVASTATIN 40 MG TAB PO (20:31)
[2019-05-23] MEDS ORDERED: DEXTROSE 50% 50 ML SYRINGE IV (22:00)
[2019-05-23] MEDS: ALBUTEROL 0.083% (NEB) 2.5 MG/3 ML AMP HHN (22:12)
[2019-05-23] MEDS: FUROSEMIDE 20 MG INJ IV (22:58)
[2019-05-23] MEDS: DEXTROSE 50% 50 ML SYRINGE IV (22:58)
[2019-05-23] MEDS: INSULIN REGULAR, HUMAN 100 UNIT/1 ML 3ML VIAL IVP (23:01)
[2019-05-24 01:45] LABS: ANION GAP 11 (5-13); BLOOD UREA NITROGEN 35 mg/dl (7-20); CARBON DIOXIDE 23 mmol/L (21-31); CHLORIDE 105 mmol/L (97-110); CREATININE 1.21 mg/dl (0.44-1.00); GLUCOSE 189 mg/dl (70-220); POTASSIUM 4.6 mmol/L (3.5-5.1); SODIUM 139 mmol/L (135-144)
[2019-05-24] MEDS ORDERED: SOD CHLORIDE 0.9% 1,000 ML IV (02:30)
[2019-05-24] MEDS: PANTOPRAZOLE (EC) 40 MG TAB PO (06:00)
[2019-05-24] MEDS: HYDROmorphONE 1 MG/ML SYG IV ×2 (06:02→18:26)
[2019-05-24 06:15] LABS: ADD MAN DIFF? NO
[2019-05-24 06:22] LABS: WHITE BLOOD COUNT 8.6 10^3/ul (4.8-10.8)
[2019-05-24 06:22] LABS: BASOPHILS % 0.2 % (0.0-2.0); EOSINOPHILS % 0.4 % (0.0-7.0); HEMATOCRIT 28.1 % (37.0-47.0); HEMOGLOBIN 9.1 g/dl (12.0-16.0); LYMPHOCYTES # 1.1 10^3/ul (0.8-2.9); LYMPHOCYTES % 12.5 % (15.0-51.0); MEAN CORPUSCULAR HEMOGLOBIN 28.6 pg (29.0-33.0); MEAN CORPUSCULAR HGB CONC 32.4 g/dl (32.0-37.0); MEAN CORPUSCULAR VOLUME 88.4 fl (82.0-101.0); MEAN PLATELET VOLUME 11.5 fl (7.4-10.4); MONOCYTE # 0.8 10^3/ul (0.3-0.9); MONOCYTES % 9.2 % (0.0-11.0); NEUTROPHIL # 6.6 10^3/ul (1.6-7.5); NEUTROPHILS % 77.2 % (39.0-77.0); PLATELET COUNT 186 10^3/UL (140-415); RED BLOOD COUNT 3.18 10^6/ul (4.20-5.40); RED CELL DISTRIBUTION WIDTH 12.8 % (11.5-14.5)
[2019-05-24] MEDS: LEVOTHYROXINE 75 MCG TAB PO (06:29)
[2019-05-24] MEDS ORDERED: SOD CHLORIDE 0.9% 500 ML IV (06:30)
[2019-05-24 06:47] LABS: ALANINE AMINOTRANSFERASE 15 IU/L (13-69); ALBUMIN 3.5 g/dl (3.3-4.9); ALBUMIN/GLOBULIN RATIO 1.29; ALKALINE PHOSPHATASE 43 IU/L (42-121); ANION GAP 9 (5-13); ASPARTATE AMINO TRANSFERASE 18 IU/L (15-46); BILIRUBIN,INDIRECT 0.5 mg/dl (0-1.1); BILIRUBIN,TOTAL 0.5 mg/dl (0.2-1.3); BLOOD UREA NITROGEN 37 mg/dl (7-20); CALCIUM 8.8 mg/dl (8.4-10.2); CARBON DIOXIDE 23 mmol/L (21-31); CHLORIDE 106 mmol/L (97-110); CHOL/HDL RATIO 3.5 RATIO; CHOLESTEROL 112 mg/dl (100-200); CREATININE 1.21 mg/dl (0.44-1.00); GLUCOSE 132 mg/dl (70-220); HDL CHOLESTEROL 32 mg/dl (33-92); LDL CHOLESTEROL,CALCULATED 64 mg/dl; MAGNESIUM 1.9 mg/dl (1.7-2.5); POTASSIUM 4.8 mmol/L (3.5-5.1); SODIUM 138 mmol/L (135-144); TOTAL PROTEIN 6.2 g/dl (6.1-8.1); TRIGLYCERIDES 80 mg/dl (0-149)
[2019-05-24] MEDS ORDERED: ALBUMIN HUMAN 5% 250 ML INJ (07:30)
[2019-05-24 07:37] LABS: HEMOGLOBIN A1C 5.7 % (0-5.9)
[2019-05-24] MEDS ORDERED: PROPOFOL 100 ML (07:53)
[2019-05-24] MEDS ORDERED: PHENYLephrine (100 MCG/ML) 10ML SYG (07:53)
[2019-05-24] MEDS ORDERED: CEFAZOLIN 1 GM INJ ×2 (07:53→16:54)
[2019-05-24] MEDS ORDERED: FENTAnyl 50 MCG/ML VIAL (07:53)
[2019-05-24] MEDS ORDERED: PHENYLephrine 10 MG INJ (08:50)
[2019-05-24] MEDS: ASPIRIN 81 MG TAB PO (09:00)
[2019-05-24] MEDS: DONEPEZIL 10 MG TAB PO (09:00)
[2019-05-24] MEDS: NIFEdipine (XL) 60 MG TAB PO (09:00)
[2019-05-24] MEDS: POLYMYXIN/BACITRACIN 1L IRRIG (09:27)
[2019-05-24] MEDS ORDERED: ALBUMIN HUMAN 5% 250 ML (09:40)
[2019-05-24] MEDS ORDERED: HETASTARCH 6% NACL 500 ML (09:40)
[2019-05-24] MEDS ORDERED: TRANEXAMIC ACID 1GM/100ML(PMX) 200 ML (11:15)
[2019-05-24 11:48] LABS: IMMEDIATE SPIN CROSSMATCH 1 5
[2019-05-24 12:12] LABS: AADO2 Arterial 142.3 mmHg (7.0-24.0); Arterial Base Excess -9.3 mmol/L (-3.0-3); Arterial Blood Gas Oxygen Sat 98.6 mmHG (95.0-100.0); Arterial COHb 0.3 % (0.0-3.0); Arterial Fraction of Oxyhgb 98.1 % (93.0-99.0); Arterial MetHb 0.2 % (0.0-1.5); Arterial pCO2 38.4 mmhg (35-45); MODE MASK - SIMPLE; Site A-Line
[2019-05-24] MEDS ORDERED: HYDROCODONE/APAP (5/325) TAB PO (12:30)
[2019-05-24] MEDS ORDERED: HYDROmorphONE 0.5 MG/0.5 ML SYG IV ×2 (12:30)
[2019-05-24] MEDS ORDERED: LABETALOL HCL 20MG INJ IV (12:30)
[2019-05-24] MEDS ORDERED: OXYCODONE/ACETAMINOPHEN (5/325) TAB PO (12:30)
[2019-05-24] MEDS ORDERED: NALBUPHINE HCL (10 MG/1 ML) INJ IV (12:30)
[2019-05-24] MEDS ORDERED: NALOXONE (0.4 MG/ML) INJ IV (12:30)
[2019-05-24] MEDS ORDERED: morphine 2 MG INJ IV ×2 (12:30)
[2019-05-24] MEDS ORDERED: MEPERIDINE 25 MG INJ IV (12:30)
[2019-05-24] MEDS ORDERED: EPHEDrine 25 MG/5 ML SYG IV (12:30)
[2019-05-24] MEDS ORDERED: METOCLOPRAMIDE 10 MG INJ IV (12:30)
[2019-05-24] MEDS ORDERED: DIPHENHYDRAMINE 50 MG INJ IV (12:30)
[2019-05-24] MEDS ORDERED: HYDROmorphONE 1 MG/5 ML IV SYRINGE IV ×2 (12:30)
[2019-05-24] MEDS ORDERED: hydrALAzine 20 MG INJ IV (12:30)
[2019-05-24] MEDS ORDERED: ONDANSETRON 4 MG INJ IV (12:30)
[2019-05-24] MEDS ORDERED: FENTAnyl 50 MCG/ML VIAL IV ×3 (12:30)
[2019-05-24] MEDS ORDERED: ACETAMINOPHEN 500 MG TAB PO (12:30)
[2019-05-24] MEDS ORDERED: ALBUMIN HUMAN 5% 250 ML IV (12:30)
[2019-05-24] MEDS ORDERED: ROPIVACAINE 0.5 % 30 ML VIAL (13:02)
[2019-05-24 14:19] LABS: ADD MAN DIFF? NO
[2019-05-24 14:25] LABS: ABNORMAL IP MESSAGE 1; BASOPHILS % 0.2 % (0.0-2.0); EOSINOPHILS % 0.2 % (0.0-7.0); HEMATOCRIT 27.1 % (37.0-47.0); HEMOGLOBIN 9.2 g/dl (12.0-16.0); LYMPHOCYTES # 0.9 10^3/ul (0.8-2.9); LYMPHOCYTES % 7.7 % (15.0-51.0); MEAN CORPUSCULAR HEMOGLOBIN 29.2 pg (29.0-33.0); MEAN CORPUSCULAR HGB CONC 33.9 g/dl (32.0-37.0); MEAN PLATELET VOLUME 10.9 fl (7.4-10.4); MONOCYTE # 1.1 10^3/ul (0.3-0.9); MONOCYTES % 9.3 % (0.0-11.0); NEUTROPHIL # 9.3 10^3/ul (1.6-7.5); NEUTROPHILS % 82.2 % (39.0-77.0); PLATELET COUNT 93 10^3/UL (140-415); RED BLOOD COUNT 3.15 10^6/ul (4.20-5.40); RED CELL DISTRIBUTION WIDTH 13.5 % (11.5-14.5)
[2019-05-24 14:25] LABS: WHITE BLOOD COUNT 11.3 10^3/ul (4.8-10.8)
[2019-05-24 14:26] LABS: POSITIVE DIFF @See below
[2019-05-24] MEDS: HYDROmorphONE 1 MG/5 ML IV SYRINGE IV (14:27)
[2019-05-24] MEDS: PHENYLephrine 20MG IN 250 ML 250 ML IV (14:35)
[2019-05-24 14:52] LABS: ANION GAP 5 (5-13); BLOOD UREA NITROGEN 31 mg/dl (7-20); CARBON DIOXIDE 19 mmol/L (21-31); CHLORIDE 114 mmol/L (97-110); CREATININE 1.06 mg/dl (0.44-1.00); GLUCOSE 154 mg/dl (70-220); MAGNESIUM 1.8 mg/dl (1.7-2.5); POTASSIUM 5.5 mmol/L (3.5-5.1); SODIUM 138 mmol/L (135-144)
[2019-05-24] MEDS: CEFAZOLIN 1 GM/50 ML (PMX) 50 ML IVPB (16:51)
[2019-05-24] MEDS: FUROSEMIDE 20 MG INJ IV (19:48)
[2019-05-24] MEDS: ATORVASTATIN 40 MG TAB PO (19:48)
[2019-05-25] MEDS: CEFAZOLIN 1 GM/50 ML (PMX) 50 ML IVPB ×2 (03:08→14:43)
[2019-05-25] MEDS: PANTOPRAZOLE (EC) 40 MG TAB PO (05:23)
[2019-05-25 05:40] LABS: ADD MAN DIFF? NO
[2019-05-25 05:47] LABS: WHITE BLOOD COUNT 9.4 10^3/ul (4.8-10.8)
[2019-05-25 05:47] LABS: ABNORMAL IP MESSAGE 1; BASOPHILS % 0.1 % (0.0-2.0); HEMATOCRIT 24.7 % (37.0-47.0); HEMOGLOBIN 8.3 g/dl (12.0-16.0); LYMPHOCYTES # 0.6 10^3/ul (0.8-2.9); LYMPHOCYTES % 6.7 % (15.0-51.0); MEAN CORPUSCULAR HEMOGLOBIN 29.2 pg (29.0-33.0); MEAN CORPUSCULAR HGB CONC 33.6 g/dl (32.0-37.0); MEAN PLATELET VOLUME 11.5 fl (7.4-10.4); MONOCYTE # 1.2 10^3/ul (0.3-0.9); MONOCYTES % 12.7 % (0.0-11.0); NEUTROPHIL # 7.5 10^3/ul (1.6-7.5); NEUTROPHILS % 80.2 % (39.0-77.0); PLATELET COUNT 93 10^3/UL (140-415); RED BLOOD COUNT 2.84 10^6/ul (4.20-5.40); RED CELL DISTRIBUTION WIDTH 14.6 % (11.5-14.5)
[2019-05-25 05:55] LABS: POSITIVE DIFF @See below
[2019-05-25 06:27] LABS: ALANINE AMINOTRANSFERASE 25 IU/L (13-69); ALBUMIN 2.4 g/dl (3.3-4.9); ALKALINE PHOSPHATASE 31 IU/L (42-121); ANION GAP 7 (5-13); ASPARTATE AMINO TRANSFERASE 32 IU/L (15-46); BILIRUBIN,INDIRECT 0.4 mg/dl (0-1.1); BILIRUBIN,TOTAL 0.4 mg/dl (0.2-1.3); BLOOD UREA NITROGEN 35 mg/dl (7-20); CALCIUM 7.3 mg/dl (8.4-10.2); CARBON DIOXIDE 19 mmol/L (21-31); CHLORIDE 114 mmol/L (97-110); CREATININE 1.39 mg/dl (0.44-1.00); GLUCOSE 146 mg/dl (70-220); POTASSIUM 5.4 mmol/L (3.5-5.1); SODIUM 140 mmol/L (135-144); TOTAL PROTEIN 4.4 g/dl (6.1-8.1)
[2019-05-25] MEDS: LEVOTHYROXINE 75 MCG TAB PO (07:46)
[2019-05-25] MEDS: HYDROmorphONE 0.5 MG/0.5 ML SYG IV (07:47)
[2019-05-25] MEDS: DONEPEZIL 10 MG TAB PO (08:34)
[2019-05-25] MEDS: ASPIRIN 81 MG TAB PO (08:34)
[2019-05-25] MEDS: NIFEdipine (XL) 60 MG TAB PO (08:34)
[2019-05-25] MEDS: SOD CHLORIDE 0.9% 250 ML IV* (08:47)
[2019-05-25] MEDS: POLYETHYLENE GLYCOL 17 GM PACKET PO (13:08)
[2019-05-25] MEDS: NA POLYST SULFON 15 GM/60 ML BTL PO (13:10)
[2019-05-25] MEDS: ATORVASTATIN 40 MG TAB PO (21:59)
[2019-05-26] MEDS: LEVOTHYROXINE 75 MCG TAB PO (06:37)
[2019-05-26] MEDS: PANTOPRAZOLE (EC) 40 MG TAB PO (06:37)
[2019-05-26 07:31] LABS: ADD MAN DIFF? NO
[2019-05-26 07:39] LABS: ABNORMAL IP MESSAGE 1; BASOPHILS % 0.1 % (0.0-2.0); EOSINOPHILS % 0.5 % (0.0-7.0); HEMATOCRIT 24.8 % (37.0-47.0); HEMOGLOBIN 8.4 g/dl (12.0-16.0); LYMPHOCYTES # 1.1 10^3/ul (0.8-2.9); LYMPHOCYTES % 13.1 % (15.0-51.0); MEAN CORPUSCULAR HEMOGLOBIN 29.5 pg (29.0-33.0); MEAN CORPUSCULAR HGB CONC 33.9 g/dl (32.0-37.0); MEAN PLATELET VOLUME 11.7 fl (7.4-10.4); MONOCYTES % 11.9 % (0.0-11.0); NEUTROPHIL # 6.2 10^3/ul (1.6-7.5); RED BLOOD COUNT 2.85 10^6/ul (4.20-5.40); RED CELL DISTRIBUTION WIDTH 14.4 % (11.5-14.5)
[2019-05-26 07:39] LABS: WHITE BLOOD COUNT 8.3 10^3/ul (4.8-10.8)
[2019-05-26 07:42] LABS: PLATELET COUNT 93 10^3/UL (140-415); POSITIVE DIFF @See below
[2019-05-26 08:07] LABS: ALANINE AMINOTRANSFERASE 28 IU/L (13-69); ALBUMIN 2.2 g/dl (3.3-4.9); ALKALINE PHOSPHATASE 35 IU/L (42-121); ANION GAP 6 (5-13); ASPARTATE AMINO TRANSFERASE 37 IU/L (15-46); BILIRUBIN,INDIRECT 0.6 mg/dl (0-1.1); BILIRUBIN,TOTAL 0.6 mg/dl (0.2-1.3); BLOOD UREA NITROGEN 28 mg/dl (7-20); CALCIUM 7.5 mg/dl (8.4-10.2); CARBON DIOXIDE 23 mmol/L (21-31); CHLORIDE 112 mmol/L (97-110); CREATININE 0.99 mg/dl (0.44-1.00); GLUCOSE 115 mg/dl (70-220); POTASSIUM 4.4 mmol/L (3.5-5.1); SODIUM 141 mmol/L (135-144); TOTAL PROTEIN 4.2 g/dl (6.1-8.1)
[2019-05-26 08:30] LABS: MAGNESIUM 1.9 mg/dl (1.7-2.5)
[2019-05-26 08:30] LABS: PHOSPHORUS 2.3 mg/dl (2.5-4.9)
[2019-05-26] MEDS: ASPIRIN 81 MG TAB PO (09:21)
[2019-05-26] MEDS: DONEPEZIL 10 MG TAB PO (09:21)
[2019-05-26] MEDS: ONDANSETRON 4 MG INJ IV (09:22)
[2019-05-26] MEDS: HYDROmorphONE 0.5 MG/0.5 ML SYG IV ×3 (09:22→22:22)
[2019-05-26] MEDS: ENOXAPARIN 30 MG/0.3 ML SYG SC (09:30)
[2019-05-26] MEDS: DIPHENHYDRAMINE 50 MG INJ IV (12:10)
[2019-05-26] MEDS: ACETAMINOPHEN 325 MG TAB PO (12:11)
[2019-05-26] MEDS: ATORVASTATIN 40 MG TAB PO (22:00)
[2019-05-27] MEDS: PANTOPRAZOLE (EC) 40 MG TAB PO (05:48)
[2019-05-27 06:54] LABS: ADD MAN DIFF? NO
[2019-05-27 06:59] LABS: WHITE BLOOD COUNT 7.2 10^3/ul (4.8-10.8)
[2019-05-27 06:59] LABS: BASOPHILS % 0.1 % (0.0-2.0); EOSINOPHILS # 0.2 10^3/ul (0.0-0.5); EOSINOPHILS % 2.4 % (0.0-7.0); HEMATOCRIT 22.1 % (37.0-47.0); HEMOGLOBIN 7.5 g/dl (12.0-16.0); LYMPHOCYTES # 1.2 10^3/ul (0.8-2.9); LYMPHOCYTES % 16.9 % (15.0-51.0); MEAN CORPUSCULAR HEMOGLOBIN 29.4 pg (29.0-33.0); MEAN CORPUSCULAR HGB CONC 33.9 g/dl (32.0-37.0); MEAN CORPUSCULAR VOLUME 86.7 fl (82.0-101.0); MEAN PLATELET VOLUME 11.1 fl (7.4-10.4); MONOCYTE # 0.8 10^3/ul (0.3-0.9); MONOCYTES % 10.8 % (0.0-11.0); NEUTROPHILS % 69.4 % (39.0-77.0); PLATELET COUNT 115 10^3/UL (140-415); RED BLOOD COUNT 2.55 10^6/ul (4.20-5.40); RED CELL DISTRIBUTION WIDTH 14.4 % (11.5-14.5)
[2019-05-27 07:20] LABS: ALANINE AMINOTRANSFERASE 29 IU/L (13-69); ALBUMIN 2.3 g/dl (3.3-4.9); ALBUMIN/GLOBULIN RATIO 0.95; ALKALINE PHOSPHATASE 45 IU/L (42-121); ANION GAP 6 (5-13); ASPARTATE AMINO TRANSFERASE 37 IU/L (15-46); BILIRUBIN,INDIRECT 0.6 mg/dl (0-1.1); BILIRUBIN,TOTAL 0.6 mg/dl (0.2-1.3); BLOOD UREA NITROGEN 24 mg/dl (7-20); CALCIUM 7.8 mg/dl (8.4-10.2); CARBON DIOXIDE 24 mmol/L (21-31); CHLORIDE 109 mmol/L (97-110); CREATININE 0.89 mg/dl (0.44-1.00); GLUCOSE 105 mg/dl (70-220); POTASSIUM 3.7 mmol/L (3.5-5.1); SODIUM 139 mmol/L (135-144); TOTAL PROTEIN 4.7 g/dl (6.1-8.1)
[2019-05-27 07:30] LABS: PHOSPHORUS 2.2 mg/dl (2.5-4.9)
[2019-05-27 07:30] LABS: MAGNESIUM 1.9 mg/dl (1.7-2.5)
[2019-05-27] MEDS: DONEPEZIL 10 MG TAB PO (08:26)
[2019-05-27] MEDS: LEVOTHYROXINE 75 MCG TAB PO (08:26)
[2019-05-27] MEDS: ASPIRIN 81 MG TAB PO (08:26)
[2019-05-27] MEDS: ENOXAPARIN 30 MG/0.3 ML SYG SC (08:29)
[2019-05-27] MEDS: HYDROmorphONE 0.5 MG/0.5 ML SYG IV (10:58)
== END 2019-05-27 16:08 | DRG 481 ==
LOC: TEL 05-25 15:06 → E/R 05:29 → ICU 05-24 16:00 → TEL 05-25 19:40 → 6WM 06:08
PROVIDERS: Pediatrics Neonatal-Perinatal Medicine
PROC: 0QS604Z Reposition Right Upper Femur with Internal Fixation Device, Open Approach (ICD-10-PCS; principal; 2019-05-24 07:30)
PROC: 0QH606Z Insertion of Intramedullary Internal Fixation Device into Right Upper Femur, Open Approach (ICD-10-PCS; 2019-05-24 07:30)
PROC: 30233N1 Transfusion of Nonautologous Red Blood Cells into Peripheral Vein, Percutaneous Approach (ICD-10-PCS; 2019-05-24 07:58)
DX: S72.21XA Displaced subtrochanteric fracture of right femur, initial encounter for closed fracture (principal); N17.9 Acute kidney failure, unspecified; I50.40 Unspecified combined systolic (congestive) and diastolic (congestive) heart failure; I13.0 Hypertensive heart and chronic kidney disease with heart failure and stage 1 through stage 4 chronic kidney disease, or unspecified chronic kidney disease; J44.9 Chronic obstructive pulmonary disease, unspecified; I11.0 Hypertensive heart disease with heart failure; I48.0 Paroxysmal atrial fibrillation; E87.5 Hyperkalemia; I25.5 Ischemic cardiomyopathy; F03.90 Unspecified dementia, unspecified severity, without behavioral disturbance, psychotic disturbance, mood disturbance, and anxiety; R00.1 Bradycardia, unspecified; I44.7 Left bundle-branch block, unspecified; D64.9 Anemia, unspecified; E78.5 Hyperlipidemia, unspecified; I25.10 Atherosclerotic heart disease of native coronary artery without angina pectoris; E03.9 Hypothyroidism, unspecified; K21.9 Gastro-esophageal reflux disease without esophagitis; N18.9 Chronic kidney disease, unspecified; Z95.1 Presence of aortocoronary bypass graft; Z79.82 Long term (current) use of aspirin; E87.6 Hypokalemia
CPT/HCPCS: 36430; 36600; 71045; 72170; 73510; 73530; 73550; 80048; 80053; 80061; 82306; 82550; 82553; 82803; 82962; 83036; 83735; 84100; 84443; 84484; 85025; 85610; 85730; 86850; 86900; 86901; 86920; 87081; 93005; 93306; 94664; 97110; 97116; 97530; 99285-25

== ENCOUNTER 2019-05-27 14:32 | Inpatient (IN) | payer MEDICARE, OTHER ==
[2019-05-27] MEDS ORDERED: ALBUTEROL HFA 8 GM INHALER INH (15:00)
[2019-05-27] MEDS ORDERED: DIPHENHYDRAMINE 50 MG INJ IV (15:00)
[2019-05-27] MEDS ORDERED: ACETAMINOPHEN 325 MG TAB PO (15:00)
[2019-05-27] MEDS ORDERED: MAGNESIUM HYDROXIDE 30ML CUP PO (15:00)
[2019-05-27] MEDS ORDERED: PENDING SANTYL ORDER FOR WOUND CARE XX (15:00)
[2019-05-27] MEDS ORDERED: NALOXONE (0.4 MG/ML) INJ IV (15:00)
[2019-05-27] MEDS ORDERED: LACTULOSE 30ML CUP PO (15:00)
[2019-05-27] MEDS ORDERED: BISACODYL 10 MG SUPP PR (15:00)
[2019-05-27] MEDS: HYDROCODONE/APAP (5/325) TAB PO ×2 (16:20→20:40)
[2019-05-27 18:07] LABS: ADD UMIC YES; UR AMORPHOUS CRYSTAL FEW /HPF (NONE SEEN); UR ASCORBIC ACID NEGATIVE (NEGATIVE); UR BACTERIA MODERATE /HPF (NONE SEEN); UR BILIRUBIN (Dip) NEGATIVE (NEGATIVE); UR BLOOD (Dip) 1+ mg/dL (NEGATIVE); UR CLARITY SLIGHTLY CLOUDY (CLEAR); UR COLOR YELLOW (YELLOW); UR GLUCOSE (Dip) NEGATIVE (NEGATIVE); UR KETONES (Dip) NEGATIVE (NEGATIVE); UR LEUKOCYTE ESTERASE (Dip) NEGATIVE Leu/ul (NEGATIVE); UR NITRITE (Dip) NEGATIVE (NEGATIVE); UR RBC 1 /HPF (0-5); UR SPECIFIC GRAVITY (Dip) 1.016 (1.003-1.030); UR SQUAMOUS EPITHELIAL CELL FEW /HPF (FEW); UR TOTAL PROTEIN (Dip) NEGATIVE (NEGATIVE); UR UROBILINOGEN (Dip) NEGATIVE (NEGATIVE); UR WBC 4 /HPF (0-5)
[2019-05-27] MEDS: DOCUSATE SODIUM 100 MG CAP PO (20:40)
[2019-05-27] MEDS: ATORVASTATIN 40 MG TAB PO (20:40)
[2019-05-27] MEDS: SENNA TAB PO (20:40)
[2019-05-28] MEDS: PANTOPRAZOLE (EC) 40 MG TAB PO (06:54)
[2019-05-28] MEDS: LEVOTHYROXINE 75 MCG TAB PO (06:54)
[2019-05-28] MEDS: HYDROCODONE/APAP (5/325) TAB PO ×3 (06:55→22:22)
[2019-05-28 07:20] LABS: ADD MAN DIFF? NO
[2019-05-28 07:25] LABS: BASOPHILS % 0.3 % (0.0-2.0); EOSINOPHILS # 0.3 10^3/ul (0.0-0.5); EOSINOPHILS % 3.8 % (0.0-7.0); HEMATOCRIT 23.6 % (37.0-47.0); HEMOGLOBIN 7.8 g/dl (12.0-16.0); LYMPHOCYTES # 1.3 10^3/ul (0.8-2.9); LYMPHOCYTES % 18.5 % (15.0-51.0); MEAN CORPUSCULAR HEMOGLOBIN 29.1 pg (29.0-33.0); MEAN CORPUSCULAR HGB CONC 33.1 g/dl (32.0-37.0); MEAN CORPUSCULAR VOLUME 88.1 fl (82.0-101.0); MEAN PLATELET VOLUME 10.6 fl (7.4-10.4); MONOCYTE # 0.9 10^3/ul (0.3-0.9); MONOCYTES % 12.4 % (0.0-11.0); NEUTROPHIL # 4.6 10^3/ul (1.6-7.5); NEUTROPHILS % 64.4 % (39.0-77.0); PLATELET COUNT 165 10^3/UL (140-415); RED BLOOD COUNT 2.68 10^6/ul (4.20-5.40); RED CELL DISTRIBUTION WIDTH 14.3 % (11.5-14.5)
[2019-05-28 07:25] LABS: WHITE BLOOD COUNT 7.2 10^3/ul (4.8-10.8)
[2019-05-28 07:52] LABS: ALANINE AMINOTRANSFERASE 63 IU/L (13-69); ALBUMIN 2.3 g/dl (3.3-4.9); ALBUMIN/GLOBULIN RATIO 0.88; ALKALINE PHOSPHATASE 89 IU/L (42-121); ANION GAP 4 (5-13); ASPARTATE AMINO TRANSFERASE 63 IU/L (15-46); BILIRUBIN,INDIRECT 0.8 mg/dl (0-1.1); BILIRUBIN,TOTAL 0.8 mg/dl (0.2-1.3); BLOOD UREA NITROGEN 22 mg/dl (7-20); CALCIUM 7.9 mg/dl (8.4-10.2); CARBON DIOXIDE 25 mmol/L (21-31); CHLORIDE 108 mmol/L (97-110); CREATININE 0.89 mg/dl (0.44-1.00); GLUCOSE 108 mg/dl (70-220); POTASSIUM 4.1 mmol/L (3.5-5.1); SODIUM 137 mmol/L (135-144); TOTAL PROTEIN 4.9 g/dl (6.1-8.1)
[2019-05-28] MEDS: HYDROmorphONE 0.5 MG/0.5 ML SYG IV ×3 (08:59→19:40)
[2019-05-28] MEDS: DOCUSATE SODIUM 100 MG CAP PO ×2 (12:45→20:42)
[2019-05-28] MEDS: ENOXAPARIN 30 MG/0.3 ML SYG SC (12:46)
[2019-05-28] MEDS: ASPIRIN 81 MG TAB PO (13:03)
[2019-05-28] MEDS: DONEPEZIL 10 MG TAB PO (13:03)
[2019-05-28] MEDS: SENNA TAB PO (20:42)
[2019-05-28] MEDS: ATORVASTATIN 40 MG TAB PO (20:42)
[2019-05-29] MEDS: PANTOPRAZOLE (EC) 40 MG TAB PO (06:01)
[2019-05-29] MEDS: LEVOTHYROXINE 75 MCG TAB PO (06:01)
[2019-05-29 07:36] LABS: IRON 24 ug/dl (35-150)
[2019-05-29 07:45] LABS: % IRON SATURATION 12 % SAT (22-52); TOTAL IRON BINDING CAPACITY 193 ug/dl (241-421)
[2019-05-29] MEDS: HYDROCODONE/APAP (5/325) TAB PO ×3 (08:39→22:30)
[2019-05-29] MEDS: DOCUSATE SODIUM 100 MG CAP PO ×2 (08:40→20:26)
[2019-05-29] MEDS: ENOXAPARIN 30 MG/0.3 ML SYG SC (08:40)
[2019-05-29] MEDS: ASPIRIN 81 MG TAB PO (08:41)
[2019-05-29] MEDS: DONEPEZIL 10 MG TAB PO (08:41)
[2019-05-29] MEDS: METOPROLOL 25 MG TAB PO (08:48)
[2019-05-29] MEDS: HYDROmorphONE 0.5 MG/0.5 ML SYG IV (10:16)
[2019-05-29] MEDS: ONDANSETRON 4 MG INJ IV (12:39)
[2019-05-29] MEDS: SOD FERRIC GLUC COMPLX 125 MG in SOD CHLORIDE 0.9% 100 ML IVPB (12:54)
[2019-05-29] MEDS: FUROSEMIDE 20 MG TAB PO (13:13)
[2019-05-29] MEDS: CIPROFLOXACIN 500 MG TAB PO (18:42)
[2019-05-29] MEDS: MEMANTINE 10 MG TAB PO (20:26)
[2019-05-29] MEDS: SENNA TAB PO (20:26)
[2019-05-29] MEDS: ATORVASTATIN 10 MG TAB PO (20:26)
[2019-05-29] MEDS: SACUBITRIL/VALSARTAN (24mg-26mg) TABLET PO (20:26)
[2019-05-30] MEDS: LEVOTHYROXINE 75 MCG TAB PO (05:57)
[2019-05-30] MEDS: PANTOPRAZOLE (EC) 40 MG TAB PO (05:57)
[2019-05-30] MEDS: CIPROFLOXACIN 500 MG TAB PO ×2 (05:57→17:25)
[2019-05-30] MEDS: HYDROCODONE/APAP (5/325) TAB PO ×2 (08:14→21:42)
[2019-05-30] MEDS: ASPIRIN 81 MG TAB PO (10:54)
[2019-05-30] MEDS: DONEPEZIL 10 MG TAB PO (10:54)
[2019-05-30] MEDS: DOCUSATE SODIUM 100 MG CAP PO ×2 (10:55→21:41)
[2019-05-30] MEDS: SACUBITRIL/VALSARTAN (24mg-26mg) TABLET PO ×2 (10:56→21:41)
[2019-05-30] MEDS: FUROSEMIDE 20 MG TAB PO (10:56)
[2019-05-30] MEDS: METOPROLOL 25 MG TAB PO ×2 (10:57→21:42)
[2019-05-30] MEDS: MEMANTINE 10 MG TAB PO ×2 (10:57→21:41)
[2019-05-30] MEDS: ENOXAPARIN 30 MG/0.3 ML SYG SC (11:05)
[2019-05-30] MEDS: HYDROmorphONE 0.5 MG/0.5 ML SYG IV ×2 (11:12→17:30)
[2019-05-30] MEDS: SOD FERRIC GLUC COMPLX 125 MG in SOD CHLORIDE 0.9% 100 ML IVPB (13:14)
[2019-05-30] MEDS: SPIRONOLACTONE 25 MG TAB PO (16:27)
[2019-05-30] MEDS: SENNA TAB PO (21:41)
[2019-05-30] MEDS: ATORVASTATIN 10 MG TAB PO (21:41)
[2019-05-31] MEDS: LEVOTHYROXINE 75 MCG TAB PO (06:21)
[2019-05-31] MEDS: PANTOPRAZOLE (EC) 40 MG TAB PO (06:21)
[2019-05-31] MEDS: CIPROFLOXACIN 500 MG TAB PO ×2 (06:21→19:10)
[2019-05-31] MEDS: SPIRONOLACTONE 25 MG TAB PO (06:21)
[2019-05-31 07:18] LABS: ADD MAN DIFF? NO
[2019-05-31 07:22] LABS: WHITE BLOOD COUNT 9.4 10^3/ul (4.8-10.8)
[2019-05-31 07:22] LABS: BASOPHILS % 0.3 % (0.0-2.0); EOSINOPHILS # 0.3 10^3/ul (0.0-0.5); EOSINOPHILS % 3.2 % (0.0-7.0); HEMATOCRIT 26.9 % (37.0-47.0); HEMOGLOBIN 8.7 g/dl (12.0-16.0); LYMPHOCYTES # 1.8 10^3/ul (0.8-2.9); LYMPHOCYTES % 18.6 % (15.0-51.0); MEAN CORPUSCULAR HEMOGLOBIN 28.5 pg (29.0-33.0); MEAN CORPUSCULAR HGB CONC 32.3 g/dl (32.0-37.0); MEAN CORPUSCULAR VOLUME 88.2 fl (82.0-101.0); MEAN PLATELET VOLUME 10.1 fl (7.4-10.4); MONOCYTES % 10.4 % (0.0-11.0); NEUTROPHILS % 63.7 % (39.0-77.0); PLATELET COUNT 342 10^3/UL (140-415); RED BLOOD COUNT 3.05 10^6/ul (4.20-5.40); RED CELL DISTRIBUTION WIDTH 13.9 % (11.5-14.5)
[2019-05-31] MEDS: HYDROmorphONE 0.5 MG/0.5 ML SYG IV ×4 (07:47→15:18)
[2019-05-31] MEDS: ENOXAPARIN 30 MG/0.3 ML SYG SC (07:50)
[2019-05-31 08:04] LABS: ANION GAP 5 (5-13); BLOOD UREA NITROGEN 26 mg/dl (7-20); CALCIUM 8.4 mg/dl (8.4-10.2); CARBON DIOXIDE 29 mmol/L (21-31); CHLORIDE 101 mmol/L (97-110); CREATININE 0.96 mg/dl (0.44-1.00); GLUCOSE 106 mg/dl (70-220); POTASSIUM 4.7 mmol/L (3.5-5.1); SODIUM 135 mmol/L (135-144)
[2019-05-31] MEDS: SACUBITRIL/VALSARTAN (24mg-26mg) TABLET PO ×2 (09:21→20:58)
[2019-05-31] MEDS: DOCUSATE SODIUM 100 MG CAP PO ×2 (09:21→20:58)
[2019-05-31] MEDS: MEMANTINE 10 MG TAB PO ×2 (09:21→20:58)
[2019-05-31] MEDS: METOPROLOL 25 MG TAB PO ×2 (09:23→20:58)
[2019-05-31] MEDS: ASPIRIN 81 MG TAB PO (09:24)
[2019-05-31] MEDS: FUROSEMIDE 20 MG TAB PO (09:24)
[2019-05-31] MEDS: DONEPEZIL 10 MG TAB PO (10:05)
[2019-05-31] MEDS: GABAPENTIN 300 MG CAP PO ×2 (14:05→20:58)
[2019-05-31] MEDS: SOD FERRIC GLUC COMPLX 125 MG in SOD CHLORIDE 0.9% 100 ML IVPB (14:05)
[2019-05-31] MEDS: HYDROCODONE/APAP (5/325) TAB PO (19:16)
[2019-05-31] MEDS: ATORVASTATIN 10 MG TAB PO (20:58)
[2019-05-31] MEDS: SENNA TAB PO (20:59)
[2019-06-01] MEDS: CIPROFLOXACIN 500 MG TAB PO ×2 (06:02→18:37)
[2019-06-01] MEDS: PANTOPRAZOLE (EC) 40 MG TAB PO (06:02)
[2019-06-01] MEDS: SPIRONOLACTONE 25 MG TAB PO (06:06)
[2019-06-01] MEDS: LEVOTHYROXINE 75 MCG TAB PO (06:07)
[2019-06-01 06:35] LABS: ABNORMAL IP MESSAGE 1; HEMATOCRIT 26.7 % (37.0-47.0); HEMOGLOBIN 8.6 g/dl (12.0-16.0); MEAN CORPUSCULAR HEMOGLOBIN 28.5 pg (29.0-33.0); MEAN CORPUSCULAR HGB CONC 32.2 g/dl (32.0-37.0); MEAN CORPUSCULAR VOLUME 88.4 fl (82.0-101.0); MEAN PLATELET VOLUME 9.7 fl (7.4-10.4); PLATELET COUNT 408 10^3/UL (140-415); RED BLOOD COUNT 3.02 10^6/ul (4.20-5.40)
[2019-06-01 06:35] LABS: WHITE BLOOD COUNT 10.1 10^3/ul (4.8-10.8)
[2019-06-01 06:51] LABS: ADD MAN DIFF? YES; POSITIVE DIFF @See below
[2019-06-01 07:14] LABS: ANION GAP 6 (5-13); BLOOD UREA NITROGEN 30 mg/dl (7-20); CALCIUM 8.3 mg/dl (8.4-10.2); CARBON DIOXIDE 30 mmol/L (21-31); CHLORIDE 103 mmol/L (97-110); CREATININE 0.99 mg/dl (0.44-1.00); GLUCOSE 105 mg/dl (70-220); MAGNESIUM 1.7 mg/dl (1.7-2.5); PHOSPHORUS 3.6 mg/dl (2.5-4.9); POTASSIUM 4.9 mmol/L (3.5-5.1); SODIUM 139 mmol/L (135-144)
[2019-06-01] MEDS: HYDROmorphONE 0.5 MG/0.5 ML SYG IV ×4 (07:45→18:00)
[2019-06-01 09:29] LABS: ANISOCYTOSIS 1+ (0-0); BAND NEUTROPHILS #M 0.2 10^3/ul (0.0-0.6); BAND NEUTROPHILS % (M) 2 % (0-4); EOSINOPHILS % (M) 4 % (0-7); GIANT THROMBO% (M) 3 % (0-0); LYMPHOCYTES #M 1.2 10^3/ul (0.8-2.9); LYMPHOCYTES % (M) 12 % (15-51); METAMYELOCYTES #M 0.1 10^3/ul (0.0-0.0); METAMYELOCYTES %M 1 % (0-0); MICROCYTOSIS 1+ (0-0); MONOCYTE #M 1.1 10^3/ul (0.3-0.9); MONOCYTES % (M) 11 % (0-11); MYELOCYTES #M 0.2 10^3/ul (0.0-0.0); MYELOCYTES % (M) 2 % (0-0); PLATELET ESTIMATE NORMAL; POIKILOCYTOSIS 1+ (0-0); POLYCHROMASIA 3+ (0-0); REACTIVE LYMPHOCYTES #M 0.1 10^3/ul (0.0-0.0); REACTIVE LYMPHOCYTES% (M) 1 % (0-0); SEG NEUT #M 6.8 10^3/ul (1.6-7.5); SEGMENTED NEUTROPHILS (M) % 67 % (39-77); SMUDGE%M 4 % (0-0)
[2019-06-01] MEDS: GABAPENTIN 300 MG CAP PO ×3 (10:42→20:41)
[2019-06-01] MEDS: SACUBITRIL/VALSARTAN (24mg-26mg) TABLET PO ×2 (10:42→20:40)
[2019-06-01] MEDS: DOCUSATE SODIUM 100 MG CAP PO ×2 (10:42→20:40)
[2019-06-01] MEDS: MEMANTINE 10 MG TAB PO ×2 (10:44→20:41)
[2019-06-01] MEDS: METOPROLOL 25 MG TAB PO ×2 (10:45→20:41)
[2019-06-01] MEDS: ASPIRIN 81 MG TAB PO (10:45)
[2019-06-01] MEDS: DONEPEZIL 10 MG TAB PO (10:45)
[2019-06-01] MEDS: FUROSEMIDE 20 MG TAB PO (10:46)
[2019-06-01] MEDS: ENOXAPARIN 30 MG/0.3 ML SYG SC (10:58)
[2019-06-01] MEDS: ATORVASTATIN 10 MG TAB PO (20:40)
[2019-06-01] MEDS: SENNA TAB PO (20:41)
[2019-06-02] MEDS: HYDROmorphONE 0.5 MG/0.5 ML SYG IV ×2 (03:32→11:55)
[2019-06-02] MEDS: SPIRONOLACTONE 25 MG TAB PO (06:34)
[2019-06-02] MEDS: LEVOTHYROXINE 75 MCG TAB PO (06:34)
[2019-06-02] MEDS: PANTOPRAZOLE (EC) 40 MG TAB PO (06:34)
[2019-06-02] MEDS: CIPROFLOXACIN 500 MG TAB PO ×2 (06:34→17:53)
[2019-06-02 07:38] LABS: WHITE BLOOD COUNT 10.1 10^3/ul (4.8-10.8)
[2019-06-02 07:38] LABS: ABNORMAL IP MESSAGE 1; HEMATOCRIT 25.2 % (37.0-47.0); HEMOGLOBIN 8.1 g/dl (12.0-16.0); MEAN CORPUSCULAR HEMOGLOBIN 29.3 pg (29.0-33.0); MEAN CORPUSCULAR HGB CONC 32.1 g/dl (32.0-37.0); MEAN CORPUSCULAR VOLUME 91.3 fl (82.0-101.0); MEAN PLATELET VOLUME 9.7 fl (7.4-10.4); NUCLEATED RED BLOOD CELLS% 0.2 /100WBC (0.0-0.0); PLATELET COUNT 452 10^3/UL (140-415); RED BLOOD COUNT 2.76 10^6/ul (4.20-5.40); RED CELL DISTRIBUTION WIDTH 14.2 % (11.5-14.5)
[2019-06-02 07:41] LABS: ADD MAN DIFF? YES; POSITIVE DIFF @See below
[2019-06-02 08:01] LABS: ANION GAP 4 (5-13); BLOOD UREA NITROGEN 34 mg/dl (7-20); CALCIUM 8.3 mg/dl (8.4-10.2); CARBON DIOXIDE 30 mmol/L (21-31); CHLORIDE 103 mmol/L (97-110); CREATININE 1.08 mg/dl (0.44-1.00); GLUCOSE 104 mg/dl (70-220); MAGNESIUM 1.9 mg/dl (1.7-2.5); PHOSPHORUS 3.9 mg/dl (2.5-4.9); POTASSIUM 5.2 mmol/L (3.5-5.1); SODIUM 137 mmol/L (135-144)
[2019-06-02] MEDS: HYDROCODONE/APAP (5/325) TAB PO ×3 (10:01→20:56)
[2019-06-02] MEDS: METOPROLOL 25 MG TAB PO ×2 (10:02→21:00)
[2019-06-02] MEDS: MEMANTINE 10 MG TAB PO ×2 (10:02→20:56)
[2019-06-02] MEDS: ASPIRIN 81 MG TAB PO (10:02)
[2019-06-02] MEDS: DONEPEZIL 10 MG TAB PO (10:02)
[2019-06-02] MEDS: FUROSEMIDE 20 MG TAB PO (10:03)
[2019-06-02] MEDS: GABAPENTIN 300 MG CAP PO ×3 (10:03→20:53)
[2019-06-02] MEDS: DOCUSATE SODIUM 100 MG CAP PO ×2 (10:03→20:55)
[2019-06-02] MEDS: SACUBITRIL/VALSARTAN (24mg-26mg) TABLET PO ×2 (10:05→20:56)
[2019-06-02 10:39] LABS: ANISOCYTOSIS 1+ (0-0); BAND NEUTROPHILS #M 0.5 10^3/ul (0.0-0.6); BAND NEUTROPHILS % (M) 5 % (0-4); EOSINOPHILS % (M) 5 % (0-7); ERYTHROBLAST% (NRBC) (M) 1 % (0-0); GIANT THROMBO% (M) 1 % (0-0); LYMPHOCYTES #M 1.8 10^3/ul (0.8-2.9); LYMPHOCYTES % (M) 18 % (15-51); MICROCYTOSIS 1+ (0-0); MONOCYTE #M 0.7 10^3/ul (0.3-0.9); MONOCYTES % (M) 7 % (0-11); MYELOCYTES #M 0.4 10^3/ul (0.0-0.0); MYELOCYTES % (M) 4 % (0-0); PLATELET ESTIMATE NORMAL; POLYCHROMASIA 3+ (0-0); SEG NEUT #M 6.2 10^3/ul (1.6-7.5); SEGMENTED NEUTROPHILS (M) % 61 % (39-77); SMUDGE%M 5 % (0-0)
[2019-06-02] MEDS: ENOXAPARIN 30 MG/0.3 ML SYG SC (10:56)
[2019-06-02] MEDS: SODIUM POLYSTYRENE 15 GM KIT (POWDER + SORBITOL) PO (15:59)
[2019-06-02] MEDS: SENNA TAB PO (20:53)
[2019-06-02] MEDS: ATORVASTATIN 10 MG TAB PO (20:56)
[2019-06-03] MEDS: SPIRONOLACTONE 25 MG TAB PO (06:31)
[2019-06-03] MEDS: CIPROFLOXACIN 500 MG TAB PO (06:31)
[2019-06-03] MEDS: LEVOTHYROXINE 75 MCG TAB PO (06:31)
[2019-06-03] MEDS: PANTOPRAZOLE (EC) 40 MG TAB PO (06:31)
[2019-06-03 06:56] LABS: ANION GAP 3 (5-13); BLOOD UREA NITROGEN 41 mg/dl (7-20); CALCIUM 7.8 mg/dl (8.4-10.2); CARBON DIOXIDE 30 mmol/L (21-31); CHLORIDE 103 mmol/L (97-110); CREATININE 1.17 mg/dl (0.44-1.00); GLUCOSE 103 mg/dl (70-220); POTASSIUM 4.8 mmol/L (3.5-5.1); SODIUM 136 mmol/L (135-144)
[2019-06-03] MEDS: HYDROCODONE/APAP (5/325) TAB PO ×3 (07:42→21:01)
[2019-06-03] MEDS: FUROSEMIDE 20 MG TAB PO (09:00)
[2019-06-03] MEDS: METOPROLOL 25 MG TAB PO ×2 (09:00→20:34)
[2019-06-03] MEDS: SACUBITRIL/VALSARTAN (24mg-26mg) TABLET PO ×2 (09:14→21:01)
[2019-06-03] MEDS: DONEPEZIL 10 MG TAB PO (09:15)
[2019-06-03] MEDS: GABAPENTIN 300 MG CAP PO ×3 (09:15→20:34)
[2019-06-03] MEDS: ASPIRIN 81 MG TAB PO (09:16)
[2019-06-03] MEDS: DOCUSATE SODIUM 100 MG CAP PO ×2 (09:16→20:34)
[2019-06-03] MEDS: ENOXAPARIN 30 MG/0.3 ML SYG SC (09:23)
[2019-06-03] MEDS: MEMANTINE 10 MG TAB PO ×2 (09:23→20:35)
[2019-06-03] MEDS: SENNA TAB PO (20:34)
[2019-06-03] MEDS: ATORVASTATIN 10 MG TAB PO (20:35)
[2019-06-04] MEDS: PANTOPRAZOLE (EC) 40 MG TAB PO (06:32)
[2019-06-04] MEDS: LEVOTHYROXINE 75 MCG TAB PO (06:32)
[2019-06-04] MEDS: SPIRONOLACTONE 25 MG TAB PO (06:32)
[2019-06-04] MEDS: HYDROCODONE/APAP (5/325) TAB PO ×3 (07:38→20:51)
[2019-06-04] MEDS: DOCUSATE SODIUM 100 MG CAP PO ×2 (08:16→20:51)
[2019-06-04] MEDS: MEMANTINE 10 MG TAB PO ×2 (08:16→20:51)
[2019-06-04] MEDS: ASPIRIN 81 MG TAB PO (08:17)
[2019-06-04] MEDS: GABAPENTIN 300 MG CAP PO ×3 (08:17→20:51)
[2019-06-04] MEDS: FUROSEMIDE 20 MG TAB PO (08:17)
[2019-06-04] MEDS: DONEPEZIL 10 MG TAB PO (08:17)
[2019-06-04] MEDS: ENOXAPARIN 30 MG/0.3 ML SYG SC (08:23)
[2019-06-04] MEDS: METOPROLOL 25 MG TAB PO (09:00)
[2019-06-04] MEDS: SACUBITRIL/VALSARTAN (24mg-26mg) TABLET PO ×2 (09:00→20:51)
[2019-06-04] MEDS ORDERED: HYDROCODONE/APAP (5/325) TAB PO (11:00)
[2019-06-04] MEDS: SENNA TAB PO (20:51)
[2019-06-04] MEDS: ATORVASTATIN 10 MG TAB PO (20:51)
[2019-06-05] MEDS: LEVOTHYROXINE 75 MCG TAB PO (06:46)
[2019-06-05] MEDS: PANTOPRAZOLE (EC) 40 MG TAB PO (06:46)
[2019-06-05] MEDS: SPIRONOLACTONE 25 MG TAB PO (06:46)
[2019-06-05] MEDS: HYDROCODONE/APAP (5/325) TAB PO (07:23)
[2019-06-05] MEDS: ASPIRIN 81 MG TAB PO (07:49)
[2019-06-05] MEDS: DONEPEZIL 10 MG TAB PO (07:49)
[2019-06-05] MEDS: DOCUSATE SODIUM 100 MG CAP PO ×2 (07:50→20:14)
[2019-06-05] MEDS: ENOXAPARIN 30 MG/0.3 ML SYG SC (08:12)
[2019-06-05] MEDS: GABAPENTIN 300 MG CAP PO ×3 (08:13→20:14)
[2019-06-05] MEDS: MEMANTINE 10 MG TAB PO ×2 (08:13→20:14)
[2019-06-05] MEDS: FUROSEMIDE 20 MG TAB PO (08:13)
[2019-06-05] MEDS: HYDROmorphONE 0.5 MG/0.5 ML SYG SC ×4 (08:16→17:20)
[2019-06-05] MEDS: SACUBITRIL/VALSARTAN (24mg-26mg) TABLET PO ×2 (09:00→20:14)
[2019-06-05] MEDS: METOPROLOL 25 MG TAB PO (11:13)
[2019-06-05] MEDS: ACETAMINOPHEN 500 MG TAB PO ×2 (15:00→22:20)
[2019-06-05] MEDS: oxyCODONE 5 MG TAB PO (20:14)
[2019-06-05] MEDS: ATORVASTATIN 10 MG TAB PO (20:14)
[2019-06-05] MEDS: SENNA TAB PO (20:14)
[2019-06-06] MEDS: LEVOTHYROXINE 75 MCG TAB PO (06:22)
[2019-06-06] MEDS: PANTOPRAZOLE (EC) 40 MG TAB PO (06:22)
[2019-06-06] MEDS: ACETAMINOPHEN 500 MG TAB PO ×3 (06:23→23:47)
[2019-06-06] MEDS: HYDROmorphONE 0.5 MG/0.5 ML SYG SC ×5 (08:15→19:29)
[2019-06-06] MEDS: MEMANTINE 10 MG TAB PO ×2 (08:52→21:29)
[2019-06-06] MEDS: DONEPEZIL 10 MG TAB PO (08:52)
[2019-06-06] MEDS: SACUBITRIL/VALSARTAN (24mg-26mg) TABLET PO ×2 (08:52→21:32)
[2019-06-06] MEDS: DOCUSATE SODIUM 100 MG CAP PO ×2 (08:52→21:28)
[2019-06-06] MEDS: GABAPENTIN 300 MG CAP PO ×3 (08:53→21:28)
[2019-06-06] MEDS: ASPIRIN 81 MG TAB PO (08:53)
[2019-06-06] MEDS: METOPROLOL 25 MG TAB PO (08:53)
[2019-06-06] MEDS: ENOXAPARIN 30 MG/0.3 ML SYG SC (08:55)
[2019-06-06] MEDS: oxyCODONE 5 MG TAB PO (11:08)
[2019-06-06] MEDS: SENNA TAB PO (21:28)
[2019-06-06] MEDS: ATORVASTATIN 10 MG TAB PO (21:28)
[2019-06-07] MEDS: ACETAMINOPHEN 500 MG TAB PO ×3 (06:19→23:00)
[2019-06-07] MEDS: LEVOTHYROXINE 75 MCG TAB PO (06:19)
[2019-06-07] MEDS: PANTOPRAZOLE (EC) 40 MG TAB PO (06:19)
[2019-06-07] MEDS: ENOXAPARIN 30 MG/0.3 ML SYG SC (08:20)
[2019-06-07] MEDS: MEMANTINE 10 MG TAB PO ×2 (08:21→21:14)
[2019-06-07] MEDS: GABAPENTIN 300 MG CAP PO ×3 (08:21→21:14)
[2019-06-07] MEDS: DONEPEZIL 10 MG TAB PO (08:21)
[2019-06-07] MEDS: DOCUSATE SODIUM 100 MG CAP PO ×2 (08:21→21:14)
[2019-06-07] MEDS: HYDROmorphONE 0.5 MG/0.5 ML SYG SC (08:21)
[2019-06-07] MEDS: SACUBITRIL/VALSARTAN (24mg-26mg) TABLET PO ×2 (08:21→21:14)
[2019-06-07] MEDS: ASPIRIN 81 MG TAB PO (08:21)
[2019-06-07] MEDS: METOPROLOL 25 MG TAB PO (08:21)
[2019-06-07] MEDS: SENNA TAB PO (21:14)
[2019-06-07] MEDS: ATORVASTATIN 10 MG TAB PO (21:14)
[2019-06-08] MEDS: ACETAMINOPHEN 500 MG TAB PO ×3 (07:06→22:05)
[2019-06-08] MEDS: PANTOPRAZOLE (EC) 40 MG TAB PO (07:06)
[2019-06-08] MEDS: LEVOTHYROXINE 75 MCG TAB PO (07:06)
[2019-06-08] MEDS: DONEPEZIL 10 MG TAB PO (08:20)
[2019-06-08] MEDS: GABAPENTIN 300 MG CAP PO ×3 (08:20→20:24)
[2019-06-08] MEDS: MEMANTINE 10 MG TAB PO ×2 (08:20→20:24)
[2019-06-08] MEDS: SACUBITRIL/VALSARTAN (24mg-26mg) TABLET PO ×2 (08:20→20:24)
[2019-06-08] MEDS: ENOXAPARIN 30 MG/0.3 ML SYG SC (08:20)
[2019-06-08] MEDS: METOPROLOL 25 MG TAB PO (08:21)
[2019-06-08] MEDS: DOCUSATE SODIUM 100 MG CAP PO ×2 (08:22→20:24)
[2019-06-08] MEDS: ASPIRIN 81 MG TAB PO (08:22)
[2019-06-08] MEDS: SENNA TAB PO (20:24)
[2019-06-08] MEDS: ATORVASTATIN 10 MG TAB PO (20:24)
[2019-06-09] MEDS: LEVOTHYROXINE 75 MCG TAB PO (06:12)
[2019-06-09] MEDS: PANTOPRAZOLE (EC) 40 MG TAB PO (06:12)
[2019-06-09] MEDS: ACETAMINOPHEN 500 MG TAB PO ×3 (06:12→22:04)
[2019-06-09] MEDS: MEMANTINE 10 MG TAB PO ×2 (08:08→20:32)
[2019-06-09] MEDS: SACUBITRIL/VALSARTAN (24mg-26mg) TABLET PO ×2 (08:08→20:33)
[2019-06-09] MEDS: DOCUSATE SODIUM 100 MG CAP PO ×2 (08:08→20:32)
[2019-06-09] MEDS: ASPIRIN 81 MG TAB PO (08:08)
[2019-06-09] MEDS: DONEPEZIL 10 MG TAB PO (08:08)
[2019-06-09] MEDS: GABAPENTIN 300 MG CAP PO ×3 (08:08→20:32)
[2019-06-09] MEDS: METOPROLOL 25 MG TAB PO (08:09)
[2019-06-09] MEDS: ENOXAPARIN 30 MG/0.3 ML SYG SC (08:10)
[2019-06-09] MEDS: ATORVASTATIN 10 MG TAB PO (20:32)
[2019-06-09] MEDS: SENNA TAB PO (20:32)
[2019-06-10] MEDS: oxyCODONE 5 MG TAB PO ×2 (02:05→07:36)
[2019-06-10] MEDS: LEVOTHYROXINE 75 MCG TAB PO (06:30)
[2019-06-10] MEDS: ACETAMINOPHEN 500 MG TAB PO ×3 (06:30→22:21)
[2019-06-10] MEDS: PANTOPRAZOLE (EC) 40 MG TAB PO (06:30)
[2019-06-10] MEDS: MEMANTINE 10 MG TAB PO ×2 (08:24→20:30)
[2019-06-10] MEDS: DOCUSATE SODIUM 100 MG CAP PO ×2 (08:24→20:30)
[2019-06-10] MEDS: DONEPEZIL 10 MG TAB PO (08:24)
[2019-06-10] MEDS: ASPIRIN 81 MG TAB PO (08:24)
[2019-06-10] MEDS: METOPROLOL 25 MG TAB PO (08:25)
[2019-06-10] MEDS: SACUBITRIL/VALSARTAN (24mg-26mg) TABLET PO ×2 (08:25→20:30)
[2019-06-10] MEDS: GABAPENTIN 300 MG CAP PO ×3 (08:25→20:30)
[2019-06-10] MEDS: ENOXAPARIN 30 MG/0.3 ML SYG SC (08:26)
[2019-06-10] MEDS: SENNA TAB PO (20:30)
[2019-06-10] MEDS: ATORVASTATIN 10 MG TAB PO (20:30)
[2019-06-11] MEDS: LEVOTHYROXINE 75 MCG TAB PO (05:46)
[2019-06-11] MEDS: PANTOPRAZOLE (EC) 40 MG TAB PO (05:46)
[2019-06-11] MEDS: ACETAMINOPHEN 500 MG TAB PO ×4 (06:14→23:00)
[2019-06-11] MEDS: HYDROmorphONE 0.5 MG/0.5 ML SYG SC ×5 (07:59→18:11)
[2019-06-11] MEDS: DOCUSATE SODIUM 100 MG CAP PO ×2 (08:31→20:22)
[2019-06-11] MEDS: MEMANTINE 10 MG TAB PO ×2 (08:31→20:22)
[2019-06-11] MEDS: ASPIRIN 81 MG TAB PO (08:31)
[2019-06-11] MEDS: GABAPENTIN 300 MG CAP PO ×3 (08:31→20:22)
[2019-06-11] MEDS: DONEPEZIL 10 MG TAB PO (08:31)
[2019-06-11] MEDS: SACUBITRIL/VALSARTAN (24mg-26mg) TABLET PO ×2 (08:54→20:22)
[2019-06-11] MEDS: METOPROLOL 25 MG TAB PO (08:55)
[2019-06-11] MEDS: ENOXAPARIN 30 MG/0.3 ML SYG SC (10:47)
[2019-06-11] MEDS: ATORVASTATIN 10 MG TAB PO (20:22)
[2019-06-11] MEDS: SENNA TAB PO (20:22)
[2019-06-11] MEDS: oxyCODONE 5 MG TAB PO (20:23)
[2019-06-12] MEDS: oxyCODONE 5 MG TAB PO (02:10)
[2019-06-12] MEDS: LEVOTHYROXINE 75 MCG TAB PO (06:28)
[2019-06-12] MEDS: PANTOPRAZOLE (EC) 40 MG TAB PO (06:28)
[2019-06-12] MEDS: ACETAMINOPHEN 500 MG TAB PO ×3 (06:28→22:51)
[2019-06-12] MEDS: HYDROmorphONE 0.5 MG/0.5 ML SYG SC ×5 (07:26→18:25)
[2019-06-12] MEDS: GABAPENTIN 300 MG CAP PO ×3 (07:37→20:46)
[2019-06-12] MEDS: DONEPEZIL 10 MG TAB PO (07:37)
[2019-06-12] MEDS: DOCUSATE SODIUM 100 MG CAP PO ×2 (07:37→09:39)
[2019-06-12] MEDS: ASPIRIN 81 MG TAB PO (07:38)
[2019-06-12] MEDS: METOPROLOL 25 MG TAB PO (09:38)
[2019-06-12] MEDS: SACUBITRIL/VALSARTAN (24mg-26mg) TABLET PO ×2 (09:38→20:46)
[2019-06-12] MEDS: ENOXAPARIN 30 MG/0.3 ML SYG SC (09:43)
[2019-06-12] MEDS: MEMANTINE 10 MG TAB PO ×2 (09:43→20:46)
[2019-06-12] MEDS: ATORVASTATIN 10 MG TAB PO (20:46)
[2019-06-12] MEDS: SENNA TAB PO (20:46)
[2019-06-13] MEDS: ACETAMINOPHEN 500 MG TAB PO ×2 (07:00→16:41)
[2019-06-13] MEDS: oxyCODONE 5 MG TAB PO ×2 (09:03→13:34)
[2019-06-13] MEDS: LEVOTHYROXINE 75 MCG TAB PO (09:03)
[2019-06-13] MEDS: SACUBITRIL/VALSARTAN (24mg-26mg) TABLET PO (09:03)
[2019-06-13] MEDS: PANTOPRAZOLE (EC) 40 MG TAB PO (09:03)
[2019-06-13] MEDS: ASPIRIN 81 MG TAB PO (09:04)
[2019-06-13] MEDS: GABAPENTIN 300 MG CAP PO ×2 (09:04→13:34)
[2019-06-13] MEDS: MEMANTINE 10 MG TAB PO (09:04)
[2019-06-13] MEDS: DONEPEZIL 10 MG TAB PO (09:04)
[2019-06-13] MEDS: DOCUSATE SODIUM 100 MG CAP PO (09:04)
[2019-06-13] MEDS: METOPROLOL 25 MG TAB PO (09:06)
[2019-06-13] MEDS: ENOXAPARIN 30 MG/0.3 ML SYG SC (09:09)
== END 2019-06-13 17:42 | disposition home health service (06) | DRG 560 ==
LOC: VRC 14:32
PROC: F07Z5ZZ Bed Mobility Treatment (ICD-10-PCS; principal; 2019-05-27)
PROC: F08Z2ZZ Grooming/Personal Hygiene Treatment (ICD-10-PCS; 2019-05-27)
DX: S72.001D Fracture of unspecified part of neck of right femur, subsequent encounter for closed fracture with routine healing (principal); N39.0 Urinary tract infection, site not specified; S09.90XD Unspecified injury of head, subsequent encounter; J44.9 Chronic obstructive pulmonary disease, unspecified; I25.10 Atherosclerotic heart disease of native coronary artery without angina pectoris; E11.9 Type 2 diabetes mellitus without complications; Z95.1 Presence of aortocoronary bypass graft; E78.5 Hyperlipidemia, unspecified; F03.90 Unspecified dementia, unspecified severity, without behavioral disturbance, psychotic disturbance, mood disturbance, and anxiety; E03.9 Hypothyroidism, unspecified; W19.XXXD Unspecified fall, subsequent encounter; Z79.82 Long term (current) use of aspirin; I11.0 Hypertensive heart disease with heart failure; I50.9 Heart failure, unspecified; D50.9 Iron deficiency anemia, unspecified
CPT/HCPCS: 73550; 80048; 80053; 81001; 82728; 83540; 83735; 84100; 85025; 87081; 87086; 97110; 97116; 97150; 97163; 97166; 97530; 97535; 97542